=== PATIENT | male | born 1975 | race African-American/Black ===

== ENCOUNTER 2018-03-19 14:35 | Inpatient (IN) | payer OTHER, MEDICARE ==
[2018-03-19] MEDS: MORPHINE 4 MG/ML 1ML VIAL/SYRINGE (J2270) IV ×2 (15:17→17:00)
[2018-03-19] MEDS: NS 1,000 ML IV ×4 (15:18→21:39)
[2018-03-19 15:20] LABS: HEMATOCRIT 18.3 % (42.0-52.0); MEAN CORPUSCULAR HEMOGLOBIN 32.3 pg (27.0-33.0); MEAN CORPUSCULAR HGB CONC 35.5 g/dl (32.0-36.5); PLATELET COUNT, AUTOMATED 167 10^3/uL (150-450); RED BLOOD COUNT 2.01 10^6/uL (4.30-6.10); RED CELL DISTRIBUTION WIDTH 23.5 % (11.5-14.5)
[2018-03-19 15:22] LABS: WHITE BLOOD COUNT 19.3 10^3/uL (4.0-10.0)
[2018-03-19 15:23] LABS: ADD MANUAL DIFFER YES; DIFF SLIDE NUMBER 153; POS COUNT POS FLAG; POSITIVE DIFF POS FLAG; POSITIVE MORPH POS FLAG; RETIC SCAT POS FLAG
[2018-03-19 15:24] LABS: HEMOGLOBIN 6.5 g/dl (13.5-17.5)
[2018-03-19 15:37] LABS: RETIC HEMOGLOBIN EQUIVALENT 31.2 pg (24-36); RETICULOCYTE # 542.6 10^9/L (17-77); RETICULOCYTE % 24.4 % (0.5-1.5)
[2018-03-19 15:46] LABS: ANION GAP 8 MEQ/L (8-16); BLOOD UREA NITROGEN 13 MG/DL (7-18); CALCIUM LEVEL 8.8 MG/DL (8.5-10.1); CARBON DIOXIDE LEVEL 24 MEQ/L (21-32); CHLORIDE LEVEL 110 MEQ/L (98-107); CPK CREATINE PHOSPHOKINASE 53 U/L (39-308); CREATININE FOR GFR 1.05 MG/DL (0.70-1.30); GLOMERULAR FILTRATION RATE > 60.0 (>60); GLUCOSE, FASTING 104 MG/DL (70-100); POTASSIUM SERUM 4.7 MEQ/L (3.5-5.1); SODIUM LEVEL 142 MEQ/L (136-145); TROPONIN I < 0.02 NG/ML (< 0.10)
[2018-03-19 15:47] LABS: ATYPICAL LYMPH 4 % (0-5); BASOPHILS 2 % (0-4); CK-MB VALUE MASS < 1.0 NG/ML (<3.6); EOSINOPHILS 5 % (0-5); LYMPHOCYTES 27 % (16-52); MB/CK RELATIVE INDEX 1.88 (< OR =4); MONOCYTES 5 % (0-8); NEUTROPHILS 57 % (35-75); PLATELET ESTIMATE NORMAL (NORMAL)
[2018-03-19 15:48] LABS: ANISOCYTOSIS 3+
[2018-03-19 15:49] LABS: POLYCHROMASIA 1+; SICKLE CELLS 2+
[2018-03-19 15:54] LABS: TEAR DROP CELLS 1+
[2018-03-19 16:39] LABS: KETONE, URINE AUTO RFX NEGATIVE (NEGATIVE); LEUKOCYTE ESTERASE UR AUTO RFX NEGATIVE (NEGATIVE); NITRITE, URINE AUTO RFX NEGATIVE (NEGATIVE); RBC, URINE AUTO RFX 1 /HPF (0-3); SPECIFIC GRAVITY UR AUTO RFX 1.009 (1.002-1.035); SQUAM EPITHELIAL CELL UR AURFX 0 /HPF (0-6); WBC, URINE AUTO RFX 0 /HPF (0-3)
[2018-03-19] MEDS ORDERED: MORPHINE 4 MG/ML 1ML VIAL/SYRINGE (J2270) IV (17:45)
[2018-03-19] MEDS ORDERED: ONDANSETRON 4MG/2ML VIAL (J2405) IV (17:45)
[2018-03-19] MEDS: PANTOPRAZOLE 40MG TAB (PROTONIX) PO (18:51)
[2018-03-19] MEDS: NORCO, ANEXSIA 5/325MG TABLET (HYDROcodone/ACETAMINOPHEN) PO ×2 (19:44→23:48)
[2018-03-19] MEDS ORDERED: ANEXSIA, NORCO 7.5MG/325MG TABLET(HYDROCODONE/APAP) As Ordered (19:46)
[2018-03-19] MEDS: HEPARIN SOD (PORCINE) 5000 UNITS/ML VIAL SQ (21:39)
[2018-03-19] MEDS: SENOKOT S TAB PO (21:40)
[2018-03-19] MEDS: DOCUSATE SODIUM 100 MG CAP PO (21:40)
[2018-03-19] MEDS: FOLIC ACID 1 MG in NS 50 ML IV (21:58)
[2018-03-19 23:13] LABS: IMMEDIATE SPIN CROSSMATCH 1 2
[2018-03-20] MEDS: HEPARIN SOD (PORCINE) 5000 UNITS/ML VIAL SQ ×3 (05:24→21:30)
[2018-03-20] MEDS: NORCO, ANEXSIA 5/325MG TABLET (HYDROcodone/ACETAMINOPHEN) PO (05:27)
[2018-03-20 05:36] LABS: HEMATOCRIT 21.1 % (42.0-52.0); HEMOGLOBIN 7.6 g/dl (13.5-17.5); MEAN CORPUSCULAR HEMOGLOBIN 31.7 pg (27.0-33.0); MEAN CORPUSCULAR VOLUME 87.9 fl (80.0-96.0); PLATELET COUNT, AUTOMATED 162 10^3/uL (150-450)
[2018-03-20 06:04] LABS: POS COUNT POS FLAG; POSITIVE DIFF POS FLAG; RETIC SCAT POS FLAG; RETICULOCYTE % 21.7 % (0.5-1.5); WHITE BLOOD COUNT 14.7 10^3/uL (4.0-10.0)
[2018-03-20 06:05] LABS: RETIC HEMOGLOBIN EQUIVALENT 29.1 pg (24-36); RETICULOCYTE # 309.6 10^9/L (17-77)
[2018-03-20 06:06] LABS: ADD MANUAL DIFFER YES; DIFF SLIDE NUMBER 68
[2018-03-20] MEDS: NS 1,000 ML IV ×5 (06:40→22:32)
[2018-03-20 06:45] LABS: EOSINOPHILS 7 % (0-5); LYMPHOCYTES 48 % (16-52); MONOCYTES 9 % (0-8); NEUTROPHILS 36 % (35-75)
[2018-03-20 06:47] LABS: GIANT PLATELETS 1+; PLATELET ESTIMATE NORMAL (NORMAL)
[2018-03-20 06:49] LABS: ANISOCYTOSIS 2+; POIKILOCYTOSIS 1+; SICKLE CELLS 3+
[2018-03-20] MEDS: DOCUSATE SODIUM 100 MG CAP PO ×2 (08:50→21:30)
[2018-03-20] MEDS: SENOKOT S TAB PO ×2 (08:51→21:31)
[2018-03-20] MEDS: PANTOPRAZOLE 40MG TAB (PROTONIX) PO (09:25)
[2018-03-20] MEDS ORDERED: NS 1,000 ML IV (11:19)
[2018-03-20] MEDS ORDERED: diphenhydrAMINE INJ 50MG/ML VIAL (J1200) IV (11:30)
[2018-03-20] MEDS ORDERED: NALOXONE INJ 0.4 MG/1 ML VIAL (J2310) IV (11:30)
[2018-03-20] MEDS ORDERED: EPIDURAL/PCA KEYS XX (11:30)
[2018-03-20] MEDS: HYDROXYUREA 500 MG CAP PO (11:41)
[2018-03-20] MEDS: MORPHINE 4 MG/ML 1ML VIAL/SYRINGE (J2270) IV (11:41)
[2018-03-20] MEDS: MORPHINE 1MG/ML IN 0.9% NACL 100ML IV BAG IV (12:20)
[2018-03-20 15:06] LABS: IMMEDIATE SPIN CROSSMATCH 1 2
[2018-03-20] MEDS: FOLIC ACID 1 MG TAB PO (16:42)
[2018-03-21] MEDS: NS 1,000 ML IV ×3 (03:37→13:45)
[2018-03-21] MEDS: HEPARIN SOD (PORCINE) 5000 UNITS/ML VIAL SQ ×3 (05:49→21:20)
[2018-03-21 07:13] LABS: BASO # 0.1 10^3/uL (0.0-0.2); BASO % 0.8 % (0.0-1.0); EOS # 0.8 10^3/uL (0.0-0.50); EOS % 5.6 % (0.0-3.0); HEMATOCRIT 24.7 % (42.0-52.0); HEMOGLOBIN 8.9 g/dl (13.5-17.5); IMMATURE GRANULOCYTE % 0.7 % (0-3.0); LYMPH # 3.7 10^3/uL (1.5-4.5); LYMPH % 25.6 % (24.0-44.0); MEAN CORPUSCULAR HEMOGLOBIN 30.9 pg (27.0-33.0); MEAN CORPUSCULAR VOLUME 85.8 fl (80.0-96.0); MONO # 1.8 10^3/uL (0.0-0.8); MONO % 12.5 % (0.0-5.0); NEUTROPHILS # 7.9 10^3/uL (1.8-7.7); NEUTROPHILS % 54.8 % (36.0-66.0); PLATELET COUNT, AUTOMATED 162 10^3/uL (150-450); RED BLOOD COUNT 2.88 10^6/uL (4.30-6.10); RED CELL DISTRIBUTION WIDTH 19.4 % (11.5-14.5); WHITE BLOOD COUNT 14.4 10^3/uL (4.0-10.0)
[2018-03-21] MEDS: PANTOPRAZOLE 40MG TAB (PROTONIX) PO (08:10)
[2018-03-21] MEDS: FOLIC ACID 1 MG TAB PO (08:11)
[2018-03-21] MEDS: SENOKOT S TAB PO ×2 (08:11→21:20)
[2018-03-21] MEDS: HYDROXYUREA 500 MG CAP PO (08:11)
[2018-03-21] MEDS: DOCUSATE SODIUM 100 MG CAP PO ×2 (08:11→21:20)
[2018-03-21] MEDS ORDERED: NS 500 ML IV (17:00)
[2018-03-21] MEDS: FUROSEMIDE 40 MG/4 ML VIAL (J1940) IV (18:09)
[2018-03-21] MEDS ORDERED: ISOVUE-370 76% 100ML VIAL (Q9967) As Ordered (18:40)
[2018-03-21 18:56] LABS: BASO # 0.1 10^3/uL (0.0-0.2); BASO % 0.5 % (0.0-1.0); EOS # 0.6 10^3/uL (0.0-0.50); EOS % 3.4 % (0.0-3.0); HEMATOCRIT 24.7 % (42.0-52.0); IMMATURE GRANULOCYTE % 0.7 % (0-3.0); LYMPH # 2.7 10^3/uL (1.5-4.5); LYMPH % 16.4 % (24.0-44.0); MEAN CORPUSCULAR HEMOGLOBIN 30.8 pg (27.0-33.0); MEAN CORPUSCULAR HGB CONC 36.4 g/dl (32.0-36.5); MEAN CORPUSCULAR VOLUME 84.6 fl (80.0-96.0); MONO # 1.8 10^3/uL (0.0-0.8); NEUTROPHILS # 11.3 10^3/uL (1.8-7.7); PLATELET COUNT, AUTOMATED 141 10^3/uL (150-450); RED BLOOD COUNT 2.92 10^6/uL (4.30-6.10); RED CELL DISTRIBUTION WIDTH 19.5 % (11.5-14.5); WHITE BLOOD COUNT 16.6 10^3/uL (4.0-10.0)
[2018-03-21 19:23] LABS: ERYTHROCYTE SEDIMENTATION RATE 42 mm/hr (0-15)
[2018-03-21 19:24] LABS: C REACTIVE PROTEIN QUANTITATIV 7.12 MG/DL (0.00-0.30)
[2018-03-21 20:14] LABS: KETONE, URINE AUTO RFX NEGATIVE (NEGATIVE); LEUKOCYTE ESTERASE UR AUTO RFX NEGATIVE (NEGATIVE); NITRITE, URINE AUTO RFX NEGATIVE (NEGATIVE); RBC, URINE AUTO RFX 1 /HPF (0-3); SPECIFIC GRAVITY UR AUTO RFX 1.006 (1.002-1.035); SQUAM EPITHELIAL CELL UR AURFX 0 /HPF (0-6); WBC, URINE AUTO RFX 0 /HPF (0-3)
[2018-03-21] MEDS: PIPERACILLIN/TAZOBACTAM SOD 3.375 GM in D5W MINI-BAG PLUS 50 ML IV (21:20)
[2018-03-21] MEDS: NALBUPHINE HCL 10 MG/ML AMP (J2300) IV (21:37)
[2018-03-21] MEDS: AZITHROMYCIN INJ 500 MG, VIAL MATE ADAPTER 1 EACH in D5W 250 ML IV (22:40)
[2018-03-22] MEDS: PIPERACILLIN/TAZOBACTAM SOD 3.375 GM in D5W MINI-BAG PLUS 50 ML IV ×4 (01:11→18:10)
[2018-03-22] MEDS: ONDANSETRON 4MG/2ML VIAL (J2405) IV (02:46)
[2018-03-22] MEDS: HEPARIN SOD (PORCINE) 5000 UNITS/ML VIAL SQ ×3 (06:18→21:52)
[2018-03-22 08:29] LABS: BASO # 0.1 10^3/uL (0.0-0.2); BASO % 0.4 % (0.0-1.0); EOS # 0.5 10^3/uL (0.0-0.50); EOS % 2.8 % (0.0-3.0); HEMATOCRIT 24.3 % (42.0-52.0); HEMOGLOBIN 8.8 g/dl (13.5-17.5); IMMATURE GRANULOCYTE % 0.7 % (0-3.0); LYMPH # 3.8 10^3/uL (1.5-4.5); LYMPH % 21.6 % (24.0-44.0); MEAN CORPUSCULAR HEMOGLOBIN 30.9 pg (27.0-33.0); MEAN CORPUSCULAR HGB CONC 36.2 g/dl (32.0-36.5); MEAN CORPUSCULAR VOLUME 85.3 fl (80.0-96.0); MONO # 2.2 10^3/uL (0.0-0.8); MONO % 12.5 % (0.0-5.0); NEUTROPHILS # 10.9 10^3/uL (1.8-7.7); POS COUNT POS FLAG; POSITIVE DIFF POS FLAG; RED BLOOD COUNT 2.85 10^6/uL (4.30-6.10); RED CELL DISTRIBUTION WIDTH 19.2 % (11.5-14.5); WHITE BLOOD COUNT 17.5 10^3/uL (4.0-10.0)
[2018-03-22 08:30] LABS: PLATELET COUNT, AUTOMATED 131 10^3/uL (150-450)
[2018-03-22] MEDS: HYDROXYUREA 500 MG CAP PO (08:41)
[2018-03-22] MEDS: SENOKOT S TAB PO ×2 (08:41→21:50)
[2018-03-22] MEDS: NALBUPHINE HCL 10 MG/ML AMP (J2300) IV (08:41)
[2018-03-22] MEDS: DOCUSATE SODIUM 100 MG CAP PO ×2 (08:41→21:50)
[2018-03-22] MEDS: PANTOPRAZOLE 40MG TAB (PROTONIX) PO (08:41)
[2018-03-22] MEDS: FOLIC ACID 1 MG TAB PO (08:41)
[2018-03-22 08:48] LABS: ANION GAP 11 MEQ/L (8-16); BLOOD UREA NITROGEN 17 MG/DL (7-18); CALCIUM LEVEL 8.9 MG/DL (8.5-10.1); CARBON DIOXIDE LEVEL 26 MEQ/L (21-32); CHLORIDE LEVEL 105 MEQ/L (98-107); GLOMERULAR FILTRATION RATE > 60.0 (>60); GLUCOSE, FASTING 73 MG/DL (70-100); MAGNESIUM LEVEL 1.7 MG/DL (1.8-2.4); POTASSIUM SERUM 4.2 MEQ/L (3.5-5.1); SODIUM LEVEL 142 MEQ/L (136-145)
[2018-03-22] MEDS ORDERED: PERCOCET 5MG/325MG TAB PO (13:00)
[2018-03-22] MEDS: ACETAMINOPHEN 325 MG TAB PO (18:11)
[2018-03-22] MEDS: oxyCODONE 5MG TAB PO (18:12)
[2018-03-22] MEDS: AZITHROMYCIN INJ 500 MG, VIAL MATE ADAPTER 1 EACH in D5W 250 ML IV (21:52)
[2018-03-23] MEDS: PIPERACILLIN/TAZOBACTAM SOD 3.375 GM in D5W MINI-BAG PLUS 50 ML IV ×4 (00:50→18:01)
[2018-03-23] MEDS: HEPARIN SOD (PORCINE) 5000 UNITS/ML VIAL SQ ×3 (06:18→21:13)
[2018-03-23 06:38] LABS: BASO # 0.1 10^3/uL (0.0-0.2); BASO % 0.5 % (0.0-1.0); EOS # 0.7 10^3/uL (0.0-0.50); EOS % 4.6 % (0.0-3.0); HEMATOCRIT 21.3 % (42.0-52.0); HEMOGLOBIN 7.8 g/dl (13.5-17.5); IMMATURE GRANULOCYTE % 1.3 % (0-3.0); LYMPH # 3.4 10^3/uL (1.5-4.5); LYMPH % 23.7 % (24.0-44.0); MEAN CORPUSCULAR HEMOGLOBIN 30.5 pg (27.0-33.0); MEAN CORPUSCULAR VOLUME 83.2 fl (80.0-96.0); MONO # 1.8 10^3/uL (0.0-0.8); MONO % 12.6 % (0.0-5.0); NEUTROPHILS # 8.1 10^3/uL (1.8-7.7); NEUTROPHILS % 57.3 % (36.0-66.0); PLATELET COUNT, AUTOMATED 132 10^3/uL (150-450); RED BLOOD COUNT 2.56 10^6/uL (4.30-6.10); WHITE BLOOD COUNT 14.2 10^3/uL (4.0-10.0)
[2018-03-23 06:43] LABS: MEAN CORPUSCULAR HGB CONC 36.2 g/dl (32.0-36.5)
[2018-03-23 06:54] LABS: ANION GAP 7 MEQ/L (8-16); BLOOD UREA NITROGEN 18 MG/DL (7-18); CALCIUM LEVEL 9.1 MG/DL (8.5-10.1); CARBON DIOXIDE LEVEL 27 MEQ/L (21-32); CHLORIDE LEVEL 108 MEQ/L (98-107); GLOMERULAR FILTRATION RATE > 60.0 (>60); GLUCOSE, FASTING 85 MG/DL (70-100); MAGNESIUM LEVEL 1.6 MG/DL (1.8-2.4); SODIUM LEVEL 142 MEQ/L (136-145)
[2018-03-23] MEDS: SENOKOT S TAB PO ×2 (08:37→21:12)
[2018-03-23] MEDS: HYDROXYUREA 500 MG CAP PO (08:37)
[2018-03-23] MEDS: PANTOPRAZOLE 40MG TAB (PROTONIX) PO (08:37)
[2018-03-23] MEDS: FOLIC ACID 1 MG TAB PO (08:37)
[2018-03-23] MEDS: DOCUSATE SODIUM 100 MG CAP PO ×2 (08:37→21:00)
[2018-03-23] MEDS: ACETAMINOPHEN 325 MG TAB PO ×2 (11:01→18:04)
[2018-03-23] MEDS: MAGNESIUM OXIDE 400 MG TAB (MAG-OX) PO ×3 (11:01→21:13)
[2018-03-23] MEDS: oxyCODONE 5MG TAB PO ×2 (11:01→18:04)
[2018-03-23 11:49] LABS: IMMEDIATE SPIN CROSSMATCH 1 2
[2018-03-23] MEDS: AZITHROMYCIN INJ 500 MG, VIAL MATE ADAPTER 1 EACH in D5W 250 ML IV (21:12)
[2018-03-24] MEDS: oxyCODONE 5MG TAB PO
[2018-03-24] MEDS: ACETAMINOPHEN 325 MG TAB PO (00:01)
[2018-03-24] MEDS ORDERED: MOXIFLOXACIN 400 MG TAB PO ×2 (06:00)
== END 2018-03-24 00:08 | disposition home or self-care (01) | DRG 662 ==
LOC: M MSPAV 03-22 09:39 → M ED 14:35 → M ED INP 17:36 → M MSPAV 18:45
PROC: 30233N1 Transfusion of Nonautologous Red Blood Cells into Peripheral Vein, Percutaneous Approach (ICD-10-PCS; principal; 2018-03-19)
DX: D57.00 Hb-SS disease with crisis, unspecified (principal); J18.9 Pneumonia, unspecified organism; Z79.891 Long term (current) use of opiate analgesic; Z79.899 Other long term (current) drug therapy

== ENCOUNTER 2021-01-31 16:42 | Inpatient (IN) | payer MEDICARE, OTHER ==
[~2021-01-31] VITALS: Ht 177.8 cm; Wt 61.0 kg
[~2021-01-31 16:42] MED LIST: ACET1TAB55 PO; AMOX500T PO; FOLI1TAB11 PO; MAGN400T35 PO; MOXI1TAB PO; PANT40TA29 PO; PERC10TA26 PO
[2021-01-31] MEDS ORDERED: HYDR500C3 PO (16:50)
[2021-01-31] MEDS ORDERED: NS 1,000 ML IV ONE (17:25)
[2021-01-31] MEDS ORDERED: MORPHINE 4 MG/ML 1ML VIAL/SYRINGE (J2270) IV PRN (17:25)
[2021-01-31 17:53] LABS: BASO # 0.1 10^3/uL (0.0-0.2); BASO % 1.2 % (0.0-1.0); EOS # 0.5 10^3/uL (0.0-0.5); EOS % 5.1 % (0.0-3.0); LYMPH # 4.9 10^3/uL (1.5-5.0); LYMPH % 49.4 % (24.0-44.0); MEAN CORPUSCULAR HEMOGLOBIN 36.7 pg (27.0-33.0); MEAN CORPUSCULAR HGB CONC 35.2 g/dl (32.0-36.5); MEAN CORPUSCULAR VOLUME 104.1 fl (80.0-96.0); MONO # 1.4 10^3/uL (0.0-0.8); MONO % 14.6 % (2.0-8.0); NEUTROPHILS # 2.9 10^3/uL (1.5-8.5); NEUTROPHILS % 29.1 % (36.0-66.0); PLATELET COUNT, AUTOMATED 133 10^3/uL (150-450); RED BLOOD COUNT 1.69 10^6/uL (4.30-6.10); WHITE BLOOD COUNT 9.8 10^3/uL (4.0-10.0)
[2021-01-31 17:55] LABS: HEMATOCRIT 17.6 % (42.0-52.0); HEMOGLOBIN 6.2 g/dl (13.5-17.5)
--- NOTE | 2021-01-31 18:11 | REP ---
INDICATION: CHEST PAIN COMPARISON: 03/19/2018 TECHNIQUE: Portable AP view of the chest FINDINGS: The mediastinum and cardiac silhouette are stable and within normal limits for portable technique. The lung diego are clear without acute consolidation, effusion, or pneumothorax. Skeletal structures are intact. IMPRESSION: No acute cardiopulmonary process appreciated. <Electronically signed by Jatin Jimenez > 01/31/21 [id number]
[2021-01-31 18:29] LABS: ALBUMIN 3.6 GM/DL (3.2-5.2); ALT/SGPT 90 U/L (12-78); BILIRUBIN,DIRECT 1.6 MG/DL (0.0-0.2); BILIRUBIN,TOTAL 6.8 MG/DL (0.2-1.0); BLOOD UREA NITROGEN 16 MG/DL (7-18); CALCIUM LEVEL 9.5 MG/DL (8.5-10.1); CARBON DIOXIDE LEVEL 25 MEQ/L (21-32); CHLORIDE LEVEL 111 MEQ/L (98-107); CK-MB VALUE MASS < 1.0 NG/ML (<3.6); CPK CREATINE PHOSPHOKINASE 45 U/L (39-308); CREATININE FOR GFR 0.91 MG/DL (0.70-1.30); GLOMERULAR FILTRATION RATE > 60.0 (>60); GLUCOSE, FASTING 112 MG/DL (70-100); LIPASE 148 U/L (73-393); MB/CK RELATIVE INDEX 2.22 (< OR =4); NT-PRO BNP 131 PG/ML (<125); POTASSIUM SERUM 5.1 MEQ/L (3.5-5.1); SODIUM LEVEL 141 MEQ/L (136-145); TOTAL PROTEIN 7.4 GM/DL (6.4-8.2); TROPONIN I < 0.02 NG/ML (< 0.10)
[2021-01-31 19:51] LABS: INR 1.26; PROTHROMBIN TIME 16.1 SECONDS (12.5-14.3)
[2021-01-31 19:53] LABS: PARTIAL THROMBOPLASTIN TIME 37.1 SECONDS (24.2-38.5)
[2021-01-31 19:55] LABS: D-DIMER QUANT 559.74 ng/ml (<500)
[2021-01-31] MEDS ORDERED: ISOVUE-370 76% 100ML VIAL As Ordered ONE (20:02)
[2021-01-31 20:07] LABS: RSV AMPLIFICATION NEGATIVE (NEGATIVE)
[2021-01-31] MEDS ORDERED: MORPHINE 4 MG/ML 1ML VIAL/SYRINGE (J2270) IV ONE (20:20)
--- NOTE | 2021-01-31 20:50 | REPVR ---
PROCEDURE INFORMATION: Exam: CTA Chest With Contrast Exam date and time: 01/31/2021 8:26 PM Age: 45 years old Clinical indication: Shortness of breath and other: Sickle crisis; Additional info: SOB; Sickle crisis; R/O pe TECHNIQUE: Imaging protocol: Computed tomographic angiography of the chest with contrast. 3D rendering (Not supervised by radiologist): MIP and/or 3D reconstructed images were created by the technologist. Radiation optimization: All CT scans at this facility use at least one of these dose optimization techniques: automated exposure control; mA and/or kV adjustment per patient size (includes targeted exams where dose is matched to clinical indication); or iterative reconstruction. Contrast material: ISOVUE 370; Contrast volume: 75 ml; Contrast route: INTRAVENOUS (IV); COMPARISON: CT ANGIO CHEST 03/21/2018 6:51 PM FINDINGS: Pulmonary arteries: There are no pulmonary emboli. Aorta: There is fusiform dilatation of the ascending thoracic aorta which measures 3.7 cm. maximally. There is no dissection or saccular component. Lungs: Unremarkable. No consolidation. No masses. Pleural spaces: Unremarkable. No pneumothorax. No pleural effusion. Heart: Unremarkable. No cardiomegaly. No pericardial effusion. Lymph nodes: Unremarkable. No enlarged lymph nodes. Bones/joints: Dextroscoliosis. Soft tissues: Unremarkable. IMPRESSION: 1. There is fusiform dilatation of the ascending thoracic aorta which measures 3.7 cm. maximally. There is no dissection or saccular component. 2. There are no pulmonary emboli. 3. No acute pulmonary parenchymal abnormalities. Electronically signed by: Marek Mckeon On 01/31/2021 20:49:48 PM
[2021-01-31] MEDS ORDERED: MAALOX 30 ML SUSP *UDC PO PRN (20:55)
[2021-01-31] MEDS ORDERED: ACETAMINOPHEN TAB 650MG DOSE (2X325MG) PO PRN (20:55)
[2021-01-31] MEDS ORDERED: MOM 30ML SUSPENSION UDC PO PRN (20:55)
--- NOTE | 2021-01-31 20:56 | HPEPDOC ---
[facility] Medical History & Physical Date of Admission Jan 31, 2021 Date of Service: Jan 31, 2021 History and Physical CHIEF COMPLAINT: bilateral lower extremity pain HISTORY OF PRESENT ILLNESS: 45-year-old male with a history of sickle cell anemia, rectal [place] to visit his son in [place] presented to the ER with 24-hour history of severe lower extremity pain as well as shortness of breath. He experiences sickle cell crisis approximately every 6 months. Particularly in cold climates. Patient denies any chest pain, palpitations, nausea, vomiting, diarrhea or headache. He states his pain in the legs improved after morphine administration. He follows with a silk trimmer and [facility] and takes hydroxyurea regularly. He ran out of his medication, but received the last dose yesterday and . She currently does not have any fever, any dysuria, cough, or subjective chills. Of note, patient also endorsing lower GI bleeding describing brown stool mixed with bright red blood. This is been occurring inte rmittently every few months, most recently yesterday morning. PAST MEDICAL HISTORY: sick cell anemia PAST SURGICAL HISTORY: cholecystectomy splenectomy SOCIAL HISTORY: Patient denies smoking Patient denies etoh use Patient denies illicit drug use FAMILY HISTORY: review with patient, non contributory ALLERGIES: Please see below. REVIEW OF SYSTEMS: 10 point ROS completed, relevant findings are noted in the HPI HOME MEDICATIONS: Please see below. PHYSICAL EXAMINATION: VITAL SIGNS: please see below General: NAD, comfortable HEENT: PERRLA, EOMI, sclerae clear Neck: supple, normal ROM, no JVD Respiratory: lungs CTAB, no wheeze, no rales, no crackles CVS: RRR, normal S1, S2, no murmurs Abdo: soft, no masses, no hepatosplenomegaly, BS+, no rebound tenderness Extremities: no edema, pulses 2+ MSK: no joint deformities, normal ROM Neuro: no focal neuro deficits, moving all 4 extremities, CN2-12 intact. Strength 5/5 in all 4 extremities. No nystagmus. Psych: calm, cooperative, AAO x 3 LABORATORY DATA: See below. IMAGING: CTA chest (01/31/21); 1. There is fusiform dilatation of the ascending thoracic aorta which measures 3.7 cm. maximally. There is no dissection or saccular component. 2. There are no pulmonary emboli. 3. No acute pulmonary parenchymal abnormalities. MICROBIOLOGY: Please see below. ASSESSMENT: 45-year-old male with a history of sickle cell anemia, rectal [place] to visit his son in [place] presented to the ER with 24-hour history of severe lower extremity pain as well as shortness of breath with an episode of hematochezia on 01/30/21. . PLAN: Sickle cell crisis: - patient is afebrile without leukocytosis, infectious etiology unlikely - Hgb 6.8. elevated retic count 456. ferritin 6400. T bili 6.8. D bili 1.6 consistent with hemolysis. 2 units prbc ordered - pain control with morphine 2 mg q2h prn for breakthrough with percocet q4h prn - start folic acid - start IVF - c/w hydroxyurea - will give lovenox 40 mg qc due to hypercoagulable state - I placed a hematology consult and discussed with Dr. Concepcion who agrees with above plan and recommends given ppx lovenox dosing. Hematochezia - patient reports bright red blood per rectum with brown stool every few months, most recently yesterday morning - transfuse for Hgb < 8 - will likely require colonoscopy, acuity depending on hemoglobin stability and recurrence of bleeding Elevated D dimer - CTA chest showing no PE - c/w lovenox 40 mg sc daily Fusiform dilatation of the ascending thoracic aorta - monitor OP Dispo: pending clinical improvement. Vital Signs Vital Signs Date Time Temp Pulse Resp B/P (MAP) Pulse Ox O2 Delivery O2 Flow Rate FiO2 01/31/21 20:37 01/31/21 20:37 73 16 94 Room Air 01/31/21 16:42 97.4 Laboratory Data Labs 24H Laboratory Tests 2 01/31/21 17:22: Immature Granulocyte % (Auto) 0.6, Neutrophils (%) (Auto) 29.1L, Lymphocytes (%) (Auto) 49.4H, Monocytes (%) (Auto) 14.6H, Eosinophils (%) (Auto) 5.1H, Basophils (%) (Auto) 1.2H, Neutrophils # (Auto) 2.9, Lymphocytes # (Auto) 4.9, Monocytes # (Auto) 1.4H, Eosinophils # (Auto) 0.5, Basophils # (Auto) 0.1, Nucleated Red Blood Cells % (auto) 3.7H, Prothrombin Time 16.1H, Prothromb Time International Ratio 1.26, Activated Partial Thromboplast Time 37.1, D-Dimer, Quantitative 559.74H, Anion Gap 5L, Glomerular Filtration Rate > 60.0, Calcium Level 9.5, Total Bilirubin 6.8H, Direct Bilirubin 1.6H, Aspartate Amino Transf (AST/SGOT) 114H, Alanine Aminotransferase (ALT/SGPT) 90H, Alkaline Phosphatase 167H, Total Creatine Kinase 45, Creatine Kinase MB < 1.0, Creatine Kinase MB Relative Index 2.22, Troponin I < 0.02, YC-Ryi-P-Type Natriuretic Peptide 131H, Total Protein 7.4, Albumin 3.6, Albumin/Globulin Ratio 0.9, Lipase 148, Thyroid Stimulating Hormone (TSH) 1.210 01/31/21 18:56: Reticulocyte # (auto) 456.7H, Percent Reticulocyte Count 28.2H, Reticulocyte Hemoglobin Equivalent 34.6, Ferritin 6396H, Coronavirus (COVID-19)(PCR) NEGATI VE, Influenza Type A (RT-PCR) NEGATIVE, Influenza Type B (RT-PCR) NEGATIVE, Respiratory Syncytial Virus (PCR) NEGATIVE CBC/BMP Laboratory Tests 01/31/21 17:22 Microbiology Microbiology 01/31/21 Blood Culture, Received Pending 01/31/21 Blood Culture, Received Pending Home Medications Scheduled Hydroxyurea (Hydroxyurea) 500 Mg Capsule, 500 MG PO DAILY Allergies Coded Allergies: No Known Allergies (Unverified , 01/31/21) A-FIB/CHADSVASC A-FIB History Current/History of A-Fib/PAF?: No Current PO Anticoag Therapy: No CELESTINA PIMENTEL MD Jan 31, 2021 20:56
[2021-01-31] MEDS ORDERED: FOLIC ACID 1 MG TAB PO ONE (21:50)
[2021-01-31 22:00] VITALS: BP 129/72
[2021-01-31 22:02] VITALS: BP 123/79
[2021-01-31 22:23] VITALS: BP 135/84
[2021-01-31 22:53] VITALS: BP_SYST 129; BP_DIAS 129; BP_DIAS 86
[2021-01-31 23:05] VITALS: BP 129/72
[2021-01-31] MEDS: NS 1,000 ML IV SCH (23:33)
[2021-01-31] MEDS: DOCUSATE SODIUM 100MG CAPSULE PO SCH (23:33)
[2021-02-01] VITALS (18 sets, daily range): BP systolic 120–131; BP diastolic 70–81
[2021-02-01] MEDS: PERCOCET 5MG/325MG TAB PO PRN ×4 (00:02→18:27)
[2021-02-01] MEDS: MORPHINE 2 MG/ML 1ML VIAL (J2270) IV PRN ×3 (03:43→21:23)
[2021-02-01] MEDS: NS 1,000 ML IV SCH ×3 (05:46→18:27)
--- NOTE | 2021-02-01 06:22 | ECGEPIP ---
[facility] - ED Test Date: 2021-01-31 Pat Name: ANISA PAL Department: Room: - Gender: Male Size Worker: TIFF : 1975 Requested By: SUZE PEDROZA Order Number: [id number] Reading MD: Rosa Figueredo Measurements Intervals [place] Rate: 70 P: 17 CA: 182 QRS: 18 QRSD: 90 T: 33 QT: 402 QTc: 434 Interpretive Statements Normal sinus rhythm subtle increase diffuse ST elevation - to consider pericarditis, ischemia, early r repolarization 03/19/[address] elevation perhaps a little more pronounced Electronically Signed on 02-01-2021 6:22:30 EDT by Rosa Figueredo
[2021-02-01] MEDS ORDERED: HYDROXYUREA 500 MG CAP PO SCH (09:00)
[2021-02-01 09:19] LABS: HEMATOCRIT 28.9 % (42.0-52.0); MEAN CORPUSCULAR HEMOGLOBIN 31.8 pg (27.0-33.0); MEAN CORPUSCULAR HGB CONC 33.9 g/dl (32.0-36.5); MEAN CORPUSCULAR VOLUME 93.8 fl (80.0-96.0); PLATELET COUNT, AUTOMATED 115 10^3/uL (150-450); RED BLOOD COUNT 3.08 10^6/uL (4.30-6.10)
[2021-02-01 09:23] LABS: HEMOGLOBIN 9.8 g/dl (13.5-17.5); WHITE BLOOD COUNT 10.6 10^3/uL (4.0-10.0)
[2021-02-01 09:42] LABS: ALBUMIN 3.4 GM/DL (3.2-5.2); ALT/SGPT 74 U/L (12-78); BILIRUBIN,TOTAL 5.5 MG/DL (0.2-1.0); BLOOD UREA NITROGEN 11 MG/DL (7-18); CALCIUM LEVEL 9.5 MG/DL (8.5-10.1); CARBON DIOXIDE LEVEL 25 MEQ/L (21-32); CHLORIDE LEVEL 112 MEQ/L (98-107); CREATININE FOR GFR 0.78 MG/DL (0.70-1.30); GLOMERULAR FILTRATION RATE > 60.0 (>60); GLUCOSE, FASTING 91 MG/DL (70-100); MAGNESIUM LEVEL 1.6 MG/DL (1.8-2.4); POTASSIUM SERUM 5.1 MEQ/L (3.5-5.1); SODIUM LEVEL 143 MEQ/L (136-145); TOTAL PROTEIN 6.7 GM/DL (6.4-8.2)
[2021-02-01 09:54] LABS: BASOPHILS 2 % (0-1); EOSINOPHILS 5 % (0-3); LYMPHOCYTES 60 % (16-44); MONOCYTES 11 % (0-5); NEUTROPHILS 22 % (28-66)
[2021-02-01 09:55] LABS: ANISOCYTOSIS 1+; POIKILOCYTOSIS 2+; POLYCHROMASIA 1+
[2021-02-01 09:56] LABS: SICKLE CELLS 2+
[2021-02-01 09:58] LABS: PLATELET ESTIMATE DECREASED (NORMAL)
[2021-02-01] MEDS: ENOXAPARIN 40MG/0.4ML SYRINGE (J1650 PER 10MG) SC SCH (10:11)
[2021-02-01] MEDS: DOCUSATE SODIUM 100MG CAPSULE PO SCH ×2 (10:11→20:30)
--- NOTE | 2021-02-01 10:34 | ECGEPIP ---
[facility] Test Date: 2021-02-01 Pat Name: ANISA PAL Department: Room: [place] [address] Gender: Male Supervisor Frame Sample And Pattern: RADHA : 1975 Requested By: ABHIJEET OLMOS Order Number: [id number] Reading MD: Lolita Schmid Measurements Intervals [place] Rate: 50 P: -27 [place]: 202 QRS: 3 QRSD: 94 T: 24 QT: 440 QTc: 401 Interpretive Statements Sinus bradycardia LEFT AXIS DEVIATION NEW SUBTLE EARLY REPOLAR CHANGES WHICH WERE MORE OBVIOUS 01/31/21 Electronically Signed on 02-01-2021 10:34:30 EDT by Lolita Schmid
--- NOTE | 2021-02-01 12:47 | CR.PDOC ---
General Date of Consultation: February 01, 2021 Referring Provider: CELESTINA PIMENTEL MD Attending Physician: HAMILTON ANDINO MD Consultation REASON FOR CONSULTATION/CHIEF COMPLAINT: [Sickle cell anemia with painful crisis]. HISTORY OF PRESENT ILLNESS: [I had the pleasure of seeing Mr. Michael Singh in consultation for sickle cell painful crisis. As you know Mr. 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 He has been having sickle cell crisis since his younger age and has been hospitalized several times in the past. He has been started on hydroxyurea while in [place] about 2 months ago and he takes 2 tablets of hydroxyurea every day. For last 1 week he has been having pain in both legs which got very severe and he ended up in emergency room of [facility]. In ER she was found to have hemoglobin of 6.2 with reticulocyte count of 28.2%. He was transfused with 4 units of packed red cells and was started on IV hydration with normal saline. He has also been started on morphine and folic acid. Currently he is feeling better and pain is under good control. Patient does not have pain anywhere else. He does not have the pain. Denies chest pain palpitations PND or orthopnea. He does not have headache dizziness or blackouts. He has no urinary symptoms. He called to him. He has hemorrhoids and has been bleeding off and on for last many years. Last time he had fresh blood per rectum about a week ago. He has never been treated for his hemorrhoids. Patient does not have any leg ulcers around the ankle. He is on disability and never worked. ALLERGIES: No known drug allergies HOME MEDICATIONS: Please see below. PAST MEDICAL HISTORY: 1. [Several episodes of painful crises of the legs. Never had acute chest crisis]. 2. 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 PAST SURGICAL HISTORY: 1. [Cholecystectomy] 2. [Splenectomy] FAMILY HISTORY: Patient has 5 siblings 3 sisters and 2 brothers. None of them have sickle cell disease. According to him his mom and dad both did not have any sickle cell disease. Likely they were carrier. Hereditary Diseases: [Sickle cell (SS) disease] Unexpected deaths due to medical reasons: SOCIAL HISTORY: Marital status and/or living arrangements: [ and lives with his .] Children: [He has 2 children one son and a daughter. These scans are not from current . Son, 17 years, has sickle cell trait 1 daughter, 12 years, has sickle cell disease] Employment: [On disability] Tobacco use:[Quit tobacco and smoking 3 years ago] ETOH: [Denies alcohol abuse] Illicit drug use: [None] IV drug use: [None] Other relevant social factors: [Patient is on disability] REVIEW OF SYSTEMS: CONSTITUTIONAL: [Currently stable and pain under good control]. HEENT: [No headache dizziness or blackouts]. CARDIOVASCULAR: [Denies chest pain palpitations PND or orthopnea]. RESPIRATORY: [No shortness of breath cough phlegm or wheezing]. GENITOURINARY: No blood in the urine]. MUSCULOSKELETAL: [Pain in both legs from trying to go]. GASTROINTESTINAL: [Patient has hemorrhoids and bleeds from that once in a while and last time bleeding was of your go]. SKIN: [No skin ulcers]. NEUROLOGICAL: [Denies seizures or headaches]. PSYCHIATRIC: [Mild compression]. ENDOCRINE: [Not a diabetic]. HEMATOLOGIC/LYMPHATIC: [Sickle cell disease with painful crisis]. ALLERGIC/IMMUNOLOGIC: [No known drug allergies]. PHYSICAL EXAMINATION: VITAL SIGNS: Please see below. GENERAL APPEARANCE: [Of present gentleman in no acute distress]. HEENT: [WNL U a milder cavity clear without mucositis or thrush]. RESPIRATORY: [Lungs clear to auscultation and percussion]. CARDIOVASCULAR: [RRR normal S2]. ABDOMEN: [Abdomen soft March on present, had splenectomy, liver not palpable]. EXTREMITIES: [No pedal edema or tenderness and no ulcers around the ankle]. NEUROLOGICAL: [No gross neurological deficit]. PSYCHIATRIC: . LABORATORY DATA: Please see below. 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 He has been transfused with 4 units of pac ked red cells. Sickle cell anemia is hypercoagulable state and currently he has been started on Lovenox 40 mg subcutaneous daily. Rectal bleeding is no longer there and it is from his hemorrhoids. Suggestions: Continue current therapy with IV hydration and continue morphine for pain control. He has been adequately transfused in hemoglobin has gone up to 9.8. He is more comfortable at this point. Continue folic acid and Lovenox for now. Do not start hydroxyurea until painful crises is over and then reintroduce hydroxyurea which can be done as outpatient. His hemorrhoids should be treated either with local hemorrhoidal ointment on a surgical appointment can be made for outpatient evaluation for his hemorrhoids. If patient develops hemorrhoidal bleeding while hospitalized Lovenox may be stopped and compression stocking should be put on. If patient is going to stay in [place] will follow him as outpatient once discharged. Patient was given ample time to auscultations which were answered to his satisfaction. Vital Signs/I&O Vital Signs Date Time Temp Pulse Resp B/P (MAP) Pulse Ox O2 Delivery O2 Flow Rate FiO2 02/01/21 11:00 16 Room Air 02/01/21 08:40 97.1 52 129/81 96 I&O- Last 24 Hours up to 6 AM 02/01/21 06:00 Intake Total 4728 ml Output Total 1225 ml Balance 3503 ml Laboratory Data Labs 24H Laboratory Tests 2 01/31/21 17:22: Immature Granulocyte % (Auto) 0.6, Neutrophils (%) (Auto) 29.1L, Lymphocytes (%) (Auto) 49.4H, Monocytes (%) (Auto) 14.6H, Eosinophils (%) (Auto) 5.1H, Basophils (%) (Auto) 1.2H, Neutrophils # (Auto) 2.9, Lymphocytes # (Auto) 4.9, Monocytes # (Auto) 1.4H, Eosinophils # (Auto) 0.5, Basophils # (Auto) 0.1, Nucleated Red Blood Cells % (auto) 3.7H, Prothrombin Time 16.1H, Prothromb Time International Ratio 1.26, Activated Partial Thromboplast Time 37.1, D-Dimer, Quantitative 559.74H, Anion Gap 5L, Glomerular Filtration Rate > 60.0, Calcium Level 9.5, Total Bilirubin 6.8H, Direct Bilirubin 1.6H, Aspartate Amino Transf (AST/SGOT) 114H, Alanine Aminotransferase (ALT/SGPT) 90H, Alkaline Phosphatase 167H, Total Creatine Kinase 45, Creatine Kinase MB < 1.0, Creatine Kinase MB Relative Index 2.22, Troponin I < 0.02, CB-Wuh-N-Type Natriuretic Peptide 131H, Total Protein 7.4, Albumin 3.6, Albumin/Globulin Ratio 0.9, Lipase 148, Thyroid Stimulating Hormone (TSH) 1.210 01/31/21 18:56: Reticulocyte # (auto) 456.7H, Percent Reticulocyte Count 28.2H, Reticulocyte Hemoglobin Equivalent 34.6, Ferritin 6396H, Coronavirus (COVID-19)(PCR) NEGATIVE, Influenza Type A (RT-PCR) NEGATIVE, Influenza Type B (RT-PCR) NEGATIVE, Respiratory Syncytial Virus (PCR) NEGATIVE 02/01/21 09:02: Neutrophils (%) (Auto) , Nucleated Red Blood Cells % (auto) 3.4H, Anion Gap 6L, Glomerular Filtration Rate > 60.0, Calcium Level 9.5, Total Bilirubin 5.5H, Aspartate Amino Transf (AST/SGOT) 89H, Alanine Aminotransferase (ALT/SGPT) 74, Alkaline Phosphatase 143H, Total Protein 6.7, Albumin 3.4, Albumin/Globulin Ratio 1.0, Neutrophils 22L, Lymphocytes (Manual) 60H, Monocytes (Manual) 11H, Eosinophils (Manual) 5H, Basophils (Manual) 2H, Polychromasia 1+, Poikilocytosis 2+, Anisocytosis 1+, Macrocytosis 1+, Sickle Cells 2+, Platelet Estimate DECREASED, Magnesium Level 1.6L CBC/BMP Laboratory Tests 01/31/21 17:22 02/01/21 09:02 Microbiology Microbiology 01/31/21 Blood Culture, Received Pending 01/31/21 Blood Culture, Received Pending Allergies Coded Allergies: No Known Allergies (Unverified , 01/31/21) Home Medications Scheduled Hydroxyurea (Hydroxyurea) 500 Mg Capsule, 500 MG PO DAILY, (Reported) HAMILTON ANDINO MD February 01, 2021 12:47
--- NOTE | 2021-02-01 14:05 | IPNPDOC ---
Text Note Date of Service The patient was seen on 02/01/21. NOTE SUBJECTIVE: The patient reports that his pain is significantly better today, and overall he is feeling much better after having received blood transfusions. He is no longer short of breath. He is not having any acute complaints at this time. He is just feeling fatigued. Otherwise, the remainder of his review of systems is negative. PHYSICAL EXAMINATION: VITAL SIGNS: please see below General: NAD, comfortable HEENT: PERRLA, EOMI, sclerae clear Neck: supple, normal ROM, no JVD Respiratory: lungs CTAB, no wheeze, no rales, no crackles CVS: RRR, normal S1, S2, no murmurs Abdo: soft, no masses, no hepatosplenomegaly, BS+, no rebound tenderness Extremities: no edema, pulses 2+ Psych: calm, cooperative, AAO x 3 ASSESSMENT: 45-year-old male with a history of sickle cell anemia, presented to the ER with 24-hour history of severe lower extremity pain as well as shortness of breath with an episode of hematochezia on 01/30/21. PLAN: Sickle cell crisis: - patient is afebrile without leukocytosis, infectious etiology unlikely - Hgb significantly improved this morning after having received 4 units of blood - pain control with morphine 2 mg q2h prn for breakthrough with percocet q4h prn -Continue folic acid -Continue IVF -Continue hydroxyurea -Continue lovenox 40 mg qc due to hypercoagulable state - Hematology consult was already placed upon admission. Apparently they're going to stop by today to evaluate the patient, their input will be greatly appreciated. Hematochezia - patient reports bright red blood per rectum with brown stool every few months, most recently occurring the morning prior to admission - transfuse for Hgb < 8 - will likely require colonoscopy, if H&H continues to drop then we will likely do this and patient. If H&H remains stable throughout admission, then recommend having this performed as an outpatient. Hypomagnesemia -[place] ordered Elevated D dimer - CTA chest showing no PE - c/w lovenox 40 mg sc daily Fusiform dilatation of the ascending thoracic aorta - monitor OP Dispo: pending clinical improvement, and stable H&H VS,Fishbone, I+O VS, Fishbone, I+O Laboratory Tests 01/31/21 17:22 02/01/21 09:02 Vital Signs Date Time Temp Pulse Resp B/P (MAP) Pulse Ox O2 Delivery O2 Flow Rate FiO2 02/01/21 11:00 16 Room Air 02/01/21 08:40 97.1 52 129/81 96 I&O- Last 24 Hours up to 6 AM 02/01/21 06:00 Intake Total 4728 ml Output Total 1225 ml Balance 3503 ml ABHIJEET OLMOS DO February 01, 2021 14:05
[2021-02-01] MEDS ORDERED: MAG SULF 1GM/100ML (MAG RUN) 1 GM in IV 1 EA IV ONE (15:00)
[2021-02-02] MEDS: NS 1,000 ML IV SCH ×2 (00:38→07:21)
[2021-02-02 06:00] VITALS: BP 136/79
[2021-02-02 06:01] LABS: HEMATOCRIT 28.4 % (42.0-52.0); HEMOGLOBIN 9.8 g/dl (13.5-17.5); MEAN CORPUSCULAR HEMOGLOBIN 32.5 pg (27.0-33.0); MEAN CORPUSCULAR HGB CONC 34.5 g/dl (32.0-36.5); PLATELET COUNT, AUTOMATED 103 10^3/uL (150-450); RED BLOOD COUNT 3.02 10^6/uL (4.30-6.10); WHITE BLOOD COUNT 11.3 10^3/uL (4.0-10.0)
[2021-02-02 06:32] LABS: ALBUMIN 3.1 GM/DL (3.2-5.2); ALT/SGPT 62 U/L (12-78); BILIRUBIN,TOTAL 5.5 MG/DL (0.2-1.0); BLOOD UREA NITROGEN 10 MG/DL (7-18); CALCIUM LEVEL 9.5 MG/DL (8.5-10.1); CARBON DIOXIDE LEVEL 25 MEQ/L (21-32); CHLORIDE LEVEL 114 MEQ/L (98-107); CREATININE FOR GFR 0.79 MG/DL (0.70-1.30); GLOMERULAR FILTRATION RATE > 60.0 (>60); GLUCOSE, FASTING 87 MG/DL (70-100); MAGNESIUM LEVEL 1.5 MG/DL (1.8-2.4); POTASSIUM SERUM 4.7 MEQ/L (3.5-5.1); SODIUM LEVEL 143 MEQ/L (136-145); TOTAL PROTEIN 6.5 GM/DL (6.4-8.2)
[2021-02-02 06:38] LABS: BASOPHILS 1 % (0-1); EOSINOPHILS 5 % (0-3); LYMPHOCYTES 53 % (16-44); MONOCYTES 8 % (0-5); NEUTROPHILS 33 % (28-66); PLATELET ESTIMATE DECREASED (NORMAL); SICKLE CELLS 2+
[2021-02-02 06:39] LABS: ANISOCYTOSIS 1+; POIKILOCYTOSIS 2+
[2021-02-02] MEDS: MAG SULF 1GM/100ML (MAG RUN) 1 GM in IV 1 EA IV SCH ×2 (07:23→08:36)
[2021-02-02] MEDS: DOCUSATE SODIUM 100MG CAPSULE PO SCH (08:36)
[2021-02-02] MEDS: ENOXAPARIN 40MG/0.4ML SYRINGE (J1650 PER 10MG) SC SCH (08:36)
[2021-02-02] MEDS: PERCOCET 5MG/325MG TAB PO PRN (08:37)
[2021-02-02] MEDS ORDERED: FOLI1TAB11 PO (11:03)
--- NOTE | 2021-02-02 11:09 | DS.PDOC ---
Discharge Summary General Date of Admission Jan 31, 2021 at 20:51 Date of Discharge 02/02/2021 Discharge Summary PROCEDURES PERFORMED DURING STAY: [None]. ADMITTING DIAGNOSES / DISCHARGE DIAGNOSES: s/p Sickle cell crisis Hematochezia Hypomagnesemia Elevated D dimer Fusiform dilatation of the ascending thoracic aorta DVT prophylaxis COMPLICATIONS/CHIEF COMPLAINT: Anemia / Pain HISTORY OF PRESENT ILLNESS: Patient is a 45-year-old male with a past medical history of sickle cell anemia who presented to the ER with 24. History of severe lower extremity pain as well as shortness of breath. Patient had a single episode of hematochezia. Upon arrival to emergency room, patient was found to be severely anemic and suspected to be in sickle cell crisis. Patient was admitted to the hospitalist service fo r further evaluation and treatment. Hematology was called on consultation. HOSPITAL COURSE: s/p Sickle cell crisis - Patient reports that he feels relatively fine. Denies any pain or shortness of breath currently - Review of systems is negative for any source of infection - Hemodynamically stable and afebrile - Mild leukocytosis - s/p 4 units PRBC - c/w Folic acid and Hydroxyurea on discharge - Hematology on consultation; appreciate their input. Will have outpatient follow-up within the next 7 days Hematochezia - patient reports bright red blood per rectum with brown stool every few months, most recently occurring the morning prior to admission - Patient has not had another event since admission - Hemoglobin has remained stable after transfusions - Patient has been advised to seek colonoscopy as an outpatient Hypomagnesemia - Will supplement via IV route Elevated D dimer - CTA chest showing no PE Fusiform dilatation of the ascending thoracic aorta - Will have outpatient follow-up with primary care provider within the next 7 days DVT prophylaxis - Continue with Lovenox DISCHARGE MEDICATIONS: Please see below. ALLERGIES: Please see below. PHYSICAL EXAMINATION ON DISCHARGE: Objective: Vitals (See below) General: Lying in bed, no acute distress, comfortable, AAOx3 HEENT: NC, AT CVS: RRR, +S1S2 Lungs: Fair air entry b/l, -w/r/r Abdomen: Soft, ND, NT Extremities: - Edema, - Calf tenderness LABORATORY DATA: Please see below. IMAGING: CXR 01/31: No acute cardiopulmonary process appreciated. CTA 01/31: 1. There is fusiform dilatation of the ascending thoracic aorta which measures 3.7 cm. maximally. There is no dissection or saccular component. 2. There are no pulmonary emboli. 3. No acute pulmonary parenchymal abnormalities. ACTIVITY: [As tolerated]. DISCHARGE PLAN: Follow-up with primary care provider and hematology within the next 7 days Remain compliant with treatment plan and medications Return to the ER if you experience any problems DISPOSITION: Home with services DISCHARGE CONDITION: [Stable]. TIME SPENT ON DISCHARGE: 35 minutes. Vital Signs/I&Os Vital Signs Date Time Temp Pulse Resp B/P (MAP) Pulse Ox O2 Delivery O2 Flow Rate FiO2 02/02/21 09:10 16 Room Air 02/02/21 06:00 97.3 60 136/79 (98) 100 I&O- Last 24 Hours up to 6 AM 02/02/21 06:00 Intake Total 3455 ml Output Total 3425 ml Balance 30 ml Laboratory Data Labs 24H Laboratory Tests 2 02/02/21 05:48: Neutrophils (%) (Auto) , Nucleated Red Blood Cells % (auto) 3.7H, Neutrophils 33, Lymphocytes (Manual) 53H, Monocytes (Manual) 8H, Eosinophils (Manual) 5H, Basophils (Manual) 1, Poikilocytosis 2+, Anisocytosis 1+, Macrocytosis 1+, Sickle Cells 2+, Platelet Estimate DECREASED, Anion Gap 4L, Glomerular Filtration Rate > 60.0, Calcium Level 9.5, Magnesium Level 1.5L, Total Bilirubin 5.5H, Aspartate Amino Transf (AST/SGOT) 72H, Alanine Aminotransferase (ALT/SGPT) 62, Alkaline Phosphatase 136H, Total Protein 6.5, Albumin 3.1L, Albumin/Globulin Ratio 0.9 CBC/BMP Laboratory Tests 02/02/21 05:48 Microbiology Microbiology 01/31/21 Blood Culture - Preliminary, Resulted No growth after 24 hours . All specim... 01/31/21 Blood Culture - Preliminary, Resulted No growth after 24 hours . All specim... Discharge Medications Scheduled Folic Acid (Folic Acid) 1 Mg Tablet, 1 TAB PO DAILY Hydroxyurea (Hydroxyurea) 500 Mg Capsule, 500 MG PO DAILY, (Reported) Allergies Coded Allergies: No Known Allergies (Unverified , 01/31/21) MARY JO CORREA MD February 02, 2021 11:09
[2021-02-02 12:48] LABS: HEMATOCRIT 29.4 % (42.0-52.0); HEMOGLOBIN 9.8 g/dl (13.5-17.5)
== END 2021-02-02 13:39 | disposition home health service (06) | DRG 812 ==
LOC: M ED 16:42 → M ED INP 20:51 → ENRESERV 21:51 → M MSPAV 22:53
PROVIDERS: ADMIT Family Medicine; ATTEND Internal Medicine
PROC: 30233N1 Transfusion of Nonautologous Red Blood Cells into Peripheral Vein, Percutaneous Approach (ICD-10-PCS; principal; 2021-01-31)
DX: D57.00 Hb-SS disease with crisis, unspecified (principal); K92.1 Melena; R06.02 Shortness of breath; E83.42 Hypomagnesemia; K64.9 Unspecified hemorrhoids; I77.810 Thoracic aortic ectasia; M79.661 Pain in right lower leg; M79.662 Pain in left lower leg; Z90.49 Acquired absence of other specified parts of digestive tract; Z90.81 Acquired absence of spleen; D72.829 Elevated white blood cell count, unspecified; R79.1 Abnormal coagulation profile; R00.1 Bradycardia, unspecified; Z79.899 Other long term (current) drug therapy; Z20.822 Contact with and (suspected) exposure to COVID-19; Z87.891 Personal history of nicotine dependence

== ENCOUNTER 2021-11-02 10:13 | Observation (INO) | payer MEDICARE, OTHER ==
[~2021-11-02] VITALS: Ht 177.8 cm; Wt 62.5 kg
[~2021-11-02 10:13] MED LIST changes: +HYDR500C3 PO; +PERC5TAB12 PO
[2021-11-02] MEDS ORDERED: GI COCKTAIL 50ML BTL(HYOSCYAMINE/MAALOX/LIDOCAINE VISCOUS)(1:3:1) PO ONE (10:50)
[2021-11-02] MEDS ORDERED: NS 1,880 ML in IV 1 EA IV ONE (10:50)
[2021-11-02] MEDS: MORPHINE 2 MG/ML 1ML VIAL (J2270) IV PRN ×4 (11:36→22:10)
[2021-11-02 12:12] LABS: CK-MB VALUE MASS < 1.0 NG/ML (<3.6); CPK CREATINE PHOSPHOKINASE 85 U/L (39-308); MB/CK RELATIVE INDEX 1.18 (< OR =4)
[2021-11-02 12:20] LABS: ALBUMIN 3.2 GM/DL (3.2-5.2); ALT/SGPT 85 U/L (12-78); BILIRUBIN,DIRECT 2.7 MG/DL (0.0-0.2); BILIRUBIN,TOTAL 9.3 MG/DL (0.2-1.0); BLOOD UREA NITROGEN 16 MG/DL (7-18); CALCIUM LEVEL 9.6 MG/DL (8.5-10.1); CARBON DIOXIDE LEVEL 23 MEQ/L (21-32); CHLORIDE LEVEL 111 MEQ/L (98-107); CREATININE FOR GFR 0.78 MG/DL (0.70-1.30); FERRITIN 8090 NG/ML (26-388); GLOMERULAR FILTRATION RATE > 60.0 (>60); GLUCOSE, FASTING 114 MG/DL (70-100); LDH LACTATE DEHYDROGENASE 894 U/L (87-241); LIPASE 154 U/L (73-393); POTASSIUM SERUM 4.6 MEQ/L (3.5-5.1); SODIUM LEVEL 141 MEQ/L (136-145); TOTAL PROTEIN 7.2 GM/DL (6.4-8.2)
[2021-11-02 12:24] LABS: BASO # 0.2 10^3/uL (0.0-0.2); BASO % 1.6 % (0.0-1.0); EOS # 0.6 10^3/uL (0.0-0.5); LYMPH # 4.1 10^3/uL (1.5-5.0); LYMPH % 29.1 % (24.0-44.0); MEAN CORPUSCULAR HEMOGLOBIN 32.1 pg (27.0-33.0); MEAN CORPUSCULAR HGB CONC 35.5 g/dl (32.0-36.5); MEAN CORPUSCULAR VOLUME 90.4 fl (80.0-96.0); MONO % 13.5 % (2.0-8.0); NEUTROPHILS % 49.4 % (36.0-66.0); PLATELET COUNT, AUTOMATED 133 10^3/uL (150-450); RED BLOOD COUNT 2.18 10^6/uL (4.30-6.10); WHITE BLOOD COUNT 14.1 10^3/uL (4.0-10.0)
[2021-11-02 12:25] LABS: HEMATOCRIT 19.7 % (42.0-52.0)
[2021-11-02 12:39] LABS: MONO # 1.9 10^3/uL (0.0-0.8)
[2021-11-02 12:47] LABS: SICKLE CELLS 4+
[2021-11-02 12:48] LABS: ANISOCYTOSIS 4+
[2021-11-02 12:49] LABS: POLYCHROMASIA 1+
[2021-11-02 12:50] LABS: POIKILOCYTOSIS 2+; SCHISTOCYTES 1+
[2021-11-02 12:52] LABS: OVALOCYTES 1+; PLATELET ESTIMATE NORMAL (NORMAL)
[2021-11-02] MEDS ORDERED: KETOROLAC 30 MG/ML 1ML VIAL IV ONE (13:05)
[2021-11-02] MEDS ORDERED: FOLI1TAB11 PO (14:38)
[2021-11-02] MEDS ORDERED: HOME MED LIST COMPLETE! XX SCH (14:40)
[2021-11-02 14:42] LABS: AMPHETAMINES LEVEL URINE NEGATIVE (NEGATIVE); BARBITURATES URINE NEGATIVE (NEGATIVE); BENZODIAZEPINES URINE NEGATIVE (NEGATIVE); CANNABINOIDS URINE NEGATIVE (NEGATIVE); COCAINE METABOLITE URINE NEGATIVE (NEGATIVE); METHADONE URINE NEGATIVE (NEGATIVE); OPIATES URINE POSITIVE (NEGATIVE); PHENCYCLIDINE URINE NEGATIVE (NEGATIVE)
[2021-11-02] MEDS ORDERED: MORPHINE 2 MG/ML 1ML VIAL (J2270) IV PRN (15:40)
[2021-11-02] MEDS ORDERED: ACETAMINOPHEN 500 MG TAB PO PRN (15:40)
[2021-11-02] MEDS: NS 0.45% 1,000 ML IV SCH ×2 (16:23→22:10)
[2021-11-02] MEDS: FOLIC ACID 1 MG TAB PO SCH (16:52)
[2021-11-02] MEDS: HYDROXYUREA 500 MG CAP PO SCH (17:41)
[2021-11-02 18:00] VITALS: BP 113/81
[2021-11-02 21:49] VITALS: BP 106/70
[2021-11-03] VITALS (14 sets, daily range): BP systolic 99–123; BP diastolic 61–76
[2021-11-03] MEDS: MORPHINE 2 MG/ML 1ML VIAL (J2270) IV PRN ×3 (05:26→17:24)
[2021-11-03] MEDS ORDERED: ENOXAPARIN 40MG/0.4ML SYRINGE (J1650 PER 10MG) SC SCH (09:00)
[2021-11-03] MEDS: NS 0.45% 1,000 ML IV SCH (09:11)
[2021-11-03 09:29] LABS: MEAN CORPUSCULAR HEMOGLOBIN 32.8 pg (27.0-33.0); MEAN CORPUSCULAR HGB CONC 35.7 g/dl (32.0-36.5); MEAN CORPUSCULAR VOLUME 91.9 fl (80.0-96.0); PLATELET COUNT, AUTOMATED 101 10^3/uL (150-450); RED BLOOD COUNT 1.86 10^6/uL (4.30-6.10); WHITE BLOOD COUNT 16.2 10^3/uL (4.0-10.0)
[2021-11-03 09:32] LABS: HEMATOCRIT 17.1 % (42.0-52.0); HEMOGLOBIN 6.1 g/dl (13.5-17.5)
[2021-11-03] MEDS: FOLIC ACID 1 MG TAB PO SCH (09:36)
[2021-11-03] MEDS: HYDROXYUREA 500 MG CAP PO SCH (09:38)
[2021-11-03] MEDS ORDERED: FOLI1TAB11 PO (09:41)
[2021-11-03] MEDS ORDERED: HYDR-3713 PO (09:41)
[2021-11-03] MEDS ORDERED: HYDR500C3 PO (09:41)
[2021-11-03 09:59] LABS: ALBUMIN 2.8 GM/DL (3.2-5.2); ALT/SGPT 78 U/L (12-78); BLOOD UREA NITROGEN 14 MG/DL (7-18); CALCIUM LEVEL 9.3 MG/DL (8.5-10.1); CARBON DIOXIDE LEVEL 25 MEQ/L (21-32); CHLORIDE LEVEL 111 MEQ/L (98-107); CREATININE FOR GFR 0.67 MG/DL (0.70-1.30); GLOMERULAR FILTRATION RATE > 60.0 (>60); GLUCOSE, FASTING 98 MG/DL (70-100); POTASSIUM SERUM 4.5 MEQ/L (3.5-5.1); SODIUM LEVEL 141 MEQ/L (136-145); TOTAL PROTEIN 6.5 GM/DL (6.4-8.2)
[2021-11-03 17:35] LABS: HEMATOCRIT 26.5 % (42.0-52.0); MEAN CORPUSCULAR HEMOGLOBIN 31.6 pg (27.0-33.0); MEAN CORPUSCULAR HGB CONC 35.1 g/dl (32.0-36.5); MEAN CORPUSCULAR VOLUME 90.1 fl (80.0-96.0); PLATELET COUNT, AUTOMATED 108 10^3/uL (150-450); RED BLOOD COUNT 2.94 10^6/uL (4.30-6.10); WHITE BLOOD COUNT 14.5 10^3/uL (4.0-10.0)
[2021-11-03 17:36] LABS: HEMOGLOBIN 9.3 g/dl (13.5-17.5)
== END 2021-11-03 18:30 | disposition home or self-care (01) ==
LOC: M ED 10:13 → M ED INP 10:14 → ENRESERV 16:22 → M MS5PR 17:04
PROVIDERS: ADMIT Family Medicine; ATTEND Family Medicine
DX: D57.09 Hb-SS disease with crisis with other specified complication (principal); I77.4 Celiac artery compression syndrome; R10.13 Epigastric pain; M79.606 Pain in leg, unspecified; Z87.891 Personal history of nicotine dependence; Z79.899 Other long term (current) drug therapy; Z90.49 Acquired absence of other specified parts of digestive tract; Z90.81 Acquired absence of spleen
CPT/HCPCS: 36415; 36430; 74176; 80048; 80053; 80076; 80307; 81001; 82550; 82553; 82728; 83605; 83615; 83690; 84484; 85025; 85027; 85046; 86850; 86900; 86901; 86920; 87040; 87798; 93005; 93041; 96361; 96372; 96374; 96375; 96376; 99285; G0378; J1650; J1885; J2270; P9016

== ENCOUNTER 2021-12-17 10:30 | Inpatient (IN) | payer MEDICARE, OTHER ==
[~2021-12-17] VITALS: Ht 177.8 cm; Wt 62.8 kg
[2021-12-17] MEDS: NS 1,000 ML IV SCH ×2 (07:59→19:47)
[~2021-12-17 10:30] MED LIST changes: +HYDR-3713 PO
[2021-12-17 13:56] LABS: MEAN CORPUSCULAR HEMOGLOBIN 33.3 pg (27.0-33.0); MEAN CORPUSCULAR HGB CONC 34.2 g/dl (32.0-36.5); MEAN CORPUSCULAR VOLUME 97.4 fl (80.0-96.0); PLATELET COUNT, AUTOMATED 205 10^3/uL (150-450); RED BLOOD COUNT 1.89 10^6/uL (4.30-6.10); WHITE BLOOD COUNT 16.2 10^3/uL (4.0-10.0)
[2021-12-17] MEDS ORDERED: PERCOCET 5MG/325MG TAB PO ONE (14:00)
[2021-12-17 14:01] LABS: HEMATOCRIT 18.4 % (42.0-52.0)
[2021-12-17 14:02] LABS: HEMOGLOBIN 6.3 g/dl (13.5-17.5)
[2021-12-17 14:09] LABS: INR 1.23; PROTHROMBIN TIME 15.9 SECONDS (12.7-14.5)
[2021-12-17 14:10] LABS: PARTIAL THROMBOPLASTIN TIME 40.6 SECONDS (25.9-37.0)
[2021-12-17] MEDS ORDERED: NS 1,000 ML IV ONE ×2 (14:15→16:30)
[2021-12-17 14:21] LABS: BASOPHILS 1 % (0-1); EOSINOPHILS 4 % (0-3); LYMPHOCYTES 24 % (16-44); METAMYELOCYTES 2 % (0-0); MONOCYTES 7 % (0-5); MYELOCYTES 1 % (0-0); NEUTROPHILS 61 % (28-66)
[2021-12-17 14:22] LABS: ANISOCYTOSIS 3+; OVALOCYTES 2+
[2021-12-17 14:23] LABS: PLATELET ESTIMATE NORMAL (NORMAL); POIKILOCYTOSIS 2+; SPHEROCYTES 3+
[2021-12-17 14:31] LABS: ALBUMIN 3.3 GM/DL (3.2-5.2); ALT/SGPT 135 U/L (12-78); BILIRUBIN,DIRECT 3.1 MG/DL (0.0-0.2); BILIRUBIN,TOTAL 6.4 MG/DL (0.2-1.0); BLOOD UREA NITROGEN 11 MG/DL (7-18); CALCIUM LEVEL 9.6 MG/DL (8.5-10.1); CARBON DIOXIDE LEVEL 27 MEQ/L (21-32); CHLORIDE LEVEL 113 MEQ/L (98-107); CREATININE FOR GFR 0.77 MG/DL (0.70-1.30); GLOMERULAR FILTRATION RATE > 60.0 (>60); GLUCOSE, FASTING 85 MG/DL (70-100); LIPASE 287 U/L (73-393); POTASSIUM SERUM 4.6 MEQ/L (3.5-5.1); SODIUM LEVEL 143 MEQ/L (136-145); TOTAL PROTEIN 7.2 GM/DL (6.4-8.2); URIC ACID 8.1 MG/DL (3.5-7.2)
[2021-12-17] MEDS ORDERED: ISOVUE-370 76% 100ML VIAL As Ordered ONE (14:43)
[2021-12-17] MEDS ORDERED: PIPERACILLIN/TAZOBACTAM SOD 3.375 GM in D5W MINI-BAG PLUS 50 ML IV ONE (15:05)
[2021-12-17 15:22] LABS: RSV AMPLIFICATION NEGATIVE (NEGATIVE)
[2021-12-17] MEDS ORDERED: ENOXAPARIN 40MG/0.4ML SYRINGE (J1650 PER 10MG) SC ONE (15:50)
[2021-12-17] MEDS ORDERED: HYDROXYUREA 500 MG CAP PO ONE (15:55)
[2021-12-17] MEDS ORDERED: FOLIC ACID 1 MG TAB PO ONE (15:55)
[2021-12-17] MEDS ORDERED: OXYC10TA3 PO (17:08)
[2021-12-17] MEDS ORDERED: HOME MED LIST COMPLETE! XX SCH (17:10)
[2021-12-17] MEDS: MORPHINE 4 MG/ML 1ML VIAL/SYRINGE (J2270) IV PRN ×2 (18:23→21:39)
[2021-12-17 18:41] VITALS: BP 108/64
[2021-12-17 19:50] VITALS: BP 112/66
[2021-12-17 22:11] VITALS: BP 115/67
[2021-12-17 22:33] VITALS: BP 111/68
[2021-12-18] VITALS (17 sets, daily range): BP systolic 103–148; BP diastolic 55–81
[2021-12-18] MEDS: MORPHINE 4 MG/ML 1ML VIAL/SYRINGE (J2270) IV PRN ×5 (01:41→18:20)
[2021-12-18 04:21] LABS: HEMATOCRIT 23.1 % (42.0-52.0); HEMOGLOBIN 7.9 g/dl (13.5-17.5)
[2021-12-18] MEDS ORDERED: ONDANSETRON 4MG/2ML VIAL IV PRN (07:40)
[2021-12-18] MEDS: NS 1,000 ML IV SCH ×2 (07:59→15:18)
[2021-12-18] MEDS ORDERED: PERCOCET 5MG/325MG TAB PO ONE (08:00)
[2021-12-18] MEDS: HYDROXYUREA 500 MG CAP PO SCH (08:01)
[2021-12-18] MEDS: FOLIC ACID 1 MG TAB PO SCH (08:01)
[2021-12-18] MEDS: ENOXAPARIN 40MG/0.4ML SYRINGE (J1650 PER 10MG) SC SCH (08:01)
[2021-12-18 08:34] LABS: ALT/SGPT 116 U/L (12-78); BILIRUBIN,TOTAL 7.5 MG/DL (0.2-1.0); BLOOD UREA NITROGEN 10 MG/DL (7-18); CARBON DIOXIDE LEVEL 25 MEQ/L (21-32); CHLORIDE LEVEL 114 MEQ/L (98-107); CREATININE FOR GFR 0.83 MG/DL (0.70-1.30); GLOMERULAR FILTRATION RATE > 60.0 (>60); GLUCOSE, FASTING 116 MG/DL (70-100); POTASSIUM SERUM 4.5 MEQ/L (3.5-5.1); SODIUM LEVEL 142 MEQ/L (136-145); TOTAL PROTEIN 6.5 GM/DL (6.4-8.2)
[2021-12-18 18:28] LABS: HEMATOCRIT 27.6 % (42.0-52.0); HEMOGLOBIN 9.7 g/dl (13.5-17.5)
[2021-12-18] MEDS ORDERED: HYDROMORPHONE HCL 0.5 MG/ 0.5 ML SYRINGE (J1170 PER 1) IV ONE (18:30)
[2021-12-18] MEDS ORDERED: NS 1,000 ML IV SCH (19:45)
[2021-12-19] VITALS (9 sets, daily range): BP systolic 106–125; BP diastolic 57–78
[2021-12-19] MEDS: PERCOCET 5MG/325MG TAB PO PRN ×2 (00:31→04:39)
[2021-12-19] MEDS ORDERED: SODIUM CHLORIDE 0.9% 1000ML IV SCH (00:40)
[2021-12-19] MEDS ORDERED: ACETAMINOPHEN TAB 650MG DOSE (2X325MG) PO ONE (00:45)
[2021-12-19] MEDS ORDERED: VANCOMYCIN HCL 750 MG, VIAL MATE ADAPTER 1 EACH in NS 250 ML IV ONE ×2 (01:00→02:00)
[2021-12-19 01:08] LABS: HEMATOCRIT 26.2 % (42.0-52.0); HEMOGLOBIN 9.4 g/dl (13.5-17.5); MEAN CORPUSCULAR HEMOGLOBIN 30.6 pg (27.0-33.0); MEAN CORPUSCULAR HGB CONC 35.9 g/dl (32.0-36.5); MEAN CORPUSCULAR VOLUME 85.3 fl (80.0-96.0); PLATELET COUNT, AUTOMATED 157 10^3/uL (150-450); RED BLOOD COUNT 3.07 10^6/uL (4.30-6.10); WHITE BLOOD COUNT 15.7 10^3/uL (4.0-10.0)
[2021-12-19] MEDS ORDERED: VANCOMYCIN HCL 1,000 MG, VIAL MATE ADAPTER 1 EACH in NS 250 ML IV SCH ×2 (01:10→08:00)
[2021-12-19 01:31] LABS: ALBUMIN 2.8 GM/DL (3.2-5.2); ALT/SGPT 117 U/L (12-78); BILIRUBIN,TOTAL 12.8 MG/DL (0.2-1.0); BLOOD UREA NITROGEN 14 MG/DL (7-18); CALCIUM LEVEL 8.8 MG/DL (8.5-10.1); CARBON DIOXIDE LEVEL 21 MEQ/L (21-32); CHLORIDE LEVEL 116 MEQ/L (98-107); CREATININE FOR GFR 0.91 MG/DL (0.70-1.30); GLOMERULAR FILTRATION RATE > 60.0 (>60); GLUCOSE, FASTING 82 MG/DL (70-100); POTASSIUM SERUM 4.5 MEQ/L (3.5-5.1); SODIUM LEVEL 142 MEQ/L (136-145); TOTAL PROTEIN 6.4 GM/DL (6.4-8.2)
[2021-12-19 01:44] LABS: BASOPHILS 4 % (0-1); EOSINOPHILS 1 % (0-3); LYMPHOCYTES 14 % (16-44); MONOCYTES 10 % (0-5); MYELOCYTES 2 % (0-0); NEUTROPHILS 69 % (28-66); SICKLE CELLS 3+
[2021-12-19 01:45] LABS: ANISOCYTOSIS 1+; MICROCYTOSIS 1+; POIKILOCYTOSIS 2+; POLYCHROMASIA 1+; SCHISTOCYTES 1+
[2021-12-19 01:46] LABS: PLATELET ESTIMATE DECREASED (NORMAL)
[2021-12-19 02:16] LABS: BILIRUBIN,DIRECT 6.9 MG/DL (0.0-0.2)
[2021-12-19] MEDS: MORPHINE 4 MG/ML 1ML VIAL/SYRINGE (J2270) IV PRN ×3 (02:16→20:27)
[2021-12-19] MEDS ORDERED: FUROSEMIDE 100MG/10ML VIAL (J1940) IV STA (02:36)
[2021-12-19] MEDS: PIPERACILLIN/TAZOBACTAM SOD 4.5 GM in D5W MINI-BAG PLUS 50 ML IV SCH ×4 (03:08→20:15)
[2021-12-19 06:09] LABS: HEMATOCRIT 27.2 % (42.0-52.0); HEMOGLOBIN 9.7 g/dl (13.5-17.5); MEAN CORPUSCULAR HEMOGLOBIN 30.5 pg (27.0-33.0); MEAN CORPUSCULAR HGB CONC 35.7 g/dl (32.0-36.5); MEAN CORPUSCULAR VOLUME 85.5 fl (80.0-96.0); PLATELET COUNT, AUTOMATED 152 10^3/uL (150-450); RED BLOOD COUNT 3.18 10^6/uL (4.30-6.10); WHITE BLOOD COUNT 16.6 10^3/uL (4.0-10.0)
[2021-12-19 06:34] LABS: ALBUMIN 2.9 GM/DL (3.2-5.2); ALT/SGPT 121 U/L (12-78); BILIRUBIN,TOTAL 13.6 MG/DL (0.2-1.0); BLOOD UREA NITROGEN 14 MG/DL (7-18); CALCIUM LEVEL 9.4 MG/DL (8.5-10.1); CARBON DIOXIDE LEVEL 23 MEQ/L (21-32); CHLORIDE LEVEL 114 MEQ/L (98-107); CREATININE FOR GFR 1.02 MG/DL (0.70-1.30); GLOMERULAR FILTRATION RATE > 60.0 (>60); GLUCOSE, FASTING 86 MG/DL (70-100); POTASSIUM SERUM 4.3 MEQ/L (3.5-5.1); SODIUM LEVEL 142 MEQ/L (136-145); TOTAL PROTEIN 6.4 GM/DL (6.4-8.2)
[2021-12-19] MEDS ORDERED: HYDROMORPHONE HCL 0.5 MG/ 0.5 ML SYRINGE (J1170 PER 1) IV ONE (08:40)
[2021-12-19] MEDS: ENOXAPARIN 40MG/0.4ML SYRINGE (J1650 PER 10MG) SC SCH (08:40)
[2021-12-19] MEDS: FOLIC ACID 1 MG TAB PO SCH (08:40)
[2021-12-19] MEDS: HYDROXYUREA 500 MG CAP PO SCH (08:40)
[2021-12-19] MEDS ORDERED: ISOVUE-370 76% 100ML VIAL As Ordered ONE (08:46)
[2021-12-19 10:23] LABS: HEPATITIS B CORE ANTIBODY IGM NEGATIVE (NEGATIVE); HEPATITIS B SURFACE ANTIGEN NEGATIVE (NEGATIVE); HEPATITIS C VIRUS ABY INDEX 0.2 INDEX (<0.8)
[2021-12-19 13:41] LABS: CK-MB VALUE MASS < 1.0 NG/ML (<3.6); CPK CREATINE PHOSPHOKINASE 56 U/L (39-308); MB/CK RELATIVE INDEX 1.79 (< OR =4)
[2021-12-19] MEDS: IBUPROFEN 200MG TAB PO PRN (17:24)
[2021-12-20] MEDS: PERCOCET 5MG/325MG TAB PO PRN ×3 (00:12→13:45)
[2021-12-20] MEDS: PIPERACILLIN/TAZOBACTAM SOD 4.5 GM in D5W MINI-BAG PLUS 50 ML IV SCH ×4 (02:20→20:22)
[2021-12-20 04:05] VITALS: BP 102/58
[2021-12-20 07:22] LABS: HEMATOCRIT 26.7 % (42.0-52.0); HEMOGLOBIN 9.3 g/dl (13.5-17.5); MEAN CORPUSCULAR HEMOGLOBIN 29.6 pg (27.0-33.0); MEAN CORPUSCULAR HGB CONC 34.8 g/dl (32.0-36.5); PLATELET COUNT, AUTOMATED 148 10^3/uL (150-450); RED BLOOD COUNT 3.14 10^6/uL (4.30-6.10); WHITE BLOOD COUNT 14.6 10^3/uL (4.0-10.0)
[2021-12-20 08:04] LABS: ALBUMIN 2.7 GM/DL (3.2-5.2); ALT/SGPT 119 U/L (12-78); BILIRUBIN,TOTAL 19.7 MG/DL (0.2-1.0); BLOOD UREA NITROGEN 21 MG/DL (7-18); CALCIUM LEVEL 9.3 MG/DL (8.5-10.1); CARBON DIOXIDE LEVEL 24 MEQ/L (21-32); CHLORIDE LEVEL 113 MEQ/L (98-107); CREATININE FOR GFR 1.13 MG/DL (0.70-1.30); GLOMERULAR FILTRATION RATE > 60.0 (>60); GLUCOSE, FASTING 83 MG/DL (70-100); NT-PRO BNP 3329 PG/ML (<125); POTASSIUM SERUM 4.1 MEQ/L (3.5-5.1); SODIUM LEVEL 144 MEQ/L (136-145); TOTAL PROTEIN 6.2 GM/DL (6.4-8.2)
[2021-12-20 08:06] LABS: ATYPICAL LYMPH 4 % (0-5); BASOPHILS 1 % (0-1); EOSINOPHILS 1 % (0-3); LYMPHOCYTES 23 % (16-44); MONOCYTES 6 % (0-5); NEUTROPHILS 65 % (28-66); PLATELET ESTIMATE NORMAL (NORMAL)
[2021-12-20 08:07] LABS: ANISOCYTOSIS 2+; SICKLE CELLS 3+
[2021-12-20 08:08] LABS: POIKILOCYTOSIS 1+
[2021-12-20 08:21] VITALS: BP 122/69
[2021-12-20] MEDS: FOLIC ACID 1 MG TAB PO SCH (08:28)
[2021-12-20] MEDS: ENOXAPARIN 40MG/0.4ML SYRINGE (J1650 PER 10MG) SC SCH (08:28)
[2021-12-20] MEDS: HYDROXYUREA 500 MG CAP PO SCH (08:28)
[2021-12-20 12:06] LABS: ANTINUCLEAR ANTIBODIES DIRECT Negative (Negative)
[2021-12-20] MEDS: MORPHINE 4 MG/ML 1ML VIAL/SYRINGE (J2270) IV PRN ×3 (15:34→20:41)
[2021-12-20 15:57] VITALS: BP 110/69
[2021-12-20 19:51] VITALS: BP 116/67
[2021-12-21] MEDS: PIPERACILLIN/TAZOBACTAM SOD 4.5 GM in D5W MINI-BAG PLUS 50 ML IV SCH (02:09)
[2021-12-21 03:50] VITALS: BP 117/64
[2021-12-21 06:30] LABS: HEMATOCRIT 25.4 % (42.0-52.0); HEMOGLOBIN 9.1 g/dl (13.5-17.5); MEAN CORPUSCULAR HEMOGLOBIN 30.3 pg (27.0-33.0); MEAN CORPUSCULAR HGB CONC 35.8 g/dl (32.0-36.5); MEAN CORPUSCULAR VOLUME 84.7 fl (80.0-96.0); PLATELET COUNT, AUTOMATED 163 10^3/uL (150-450); WHITE BLOOD COUNT 14.3 10^3/uL (4.0-10.0)
[2021-12-21 06:59] LABS: ATYPICAL LYMPH 5 % (0-5); BASOPHILS 1 % (0-1); EOSINOPHILS 6 % (0-3); LYMPHOCYTES 17 % (16-44); MONOCYTES 17 % (0-5); NEUTROPHILS 53 % (28-66)
[2021-12-21 07:00] LABS: PLATELET ESTIMATE NORMAL (NORMAL); SICKLE CELLS 2+
[2021-12-21 07:01] LABS: SCHISTOCYTES 1+
[2021-12-21 07:04] LABS: ALBUMIN 2.8 GM/DL (3.2-5.2); ALT/SGPT 113 U/L (12-78); BLOOD UREA NITROGEN 16 MG/DL (7-18); CALCIUM LEVEL 9.5 MG/DL (8.5-10.1); CARBON DIOXIDE LEVEL 25 MEQ/L (21-32); CHLORIDE LEVEL 115 MEQ/L (98-107); CREATININE FOR GFR 1.13 MG/DL (0.70-1.30); GLOMERULAR FILTRATION RATE > 60.0 (>60); GLUCOSE, FASTING 89 MG/DL (70-100); POTASSIUM SERUM 4.1 MEQ/L (3.5-5.1); SODIUM LEVEL 145 MEQ/L (136-145); TOTAL PROTEIN 6.9 GM/DL (6.4-8.2)
[2021-12-21 08:00] VITALS: BP 127/79
[2021-12-21] MEDS: HYDROXYUREA 500 MG CAP PO SCH (08:25)
[2021-12-21] MEDS: FOLIC ACID 1 MG TAB PO SCH (08:25)
[2021-12-21] MEDS: ENOXAPARIN 40MG/0.4ML SYRINGE (J1650 PER 10MG) SC SCH (08:25)
[2021-12-21] MEDS: DOXYCYCLINE HYCLATE 100 MG in D5W MINI-BAG PLUS 100 ML IV SCH ×2 (08:26→21:27)
[2021-12-21 12:12] VITALS: BP 126/73
[2021-12-21] MEDS: IBUPROFEN 200MG TAB PO PRN (12:20)
[2021-12-21] MEDS: PERCOCET 5MG/325MG TAB PO PRN ×2 (13:39→17:49)
[2021-12-21 20:00] VITALS: BP 137/78
[2021-12-22] VITALS: BP 134/76
[2021-12-22 04:00] VITALS: BP 133/73
[2021-12-22 06:14] LABS: HEMATOCRIT 27.2 % (42.0-52.0); HEMOGLOBIN 9.4 g/dl (13.5-17.5); MEAN CORPUSCULAR HEMOGLOBIN 30.6 pg (27.0-33.0); MEAN CORPUSCULAR HGB CONC 34.6 g/dl (32.0-36.5); MEAN CORPUSCULAR VOLUME 88.6 fl (80.0-96.0); PLATELET COUNT, AUTOMATED 164 10^3/uL (150-450); RED BLOOD COUNT 3.07 10^6/uL (4.30-6.10); WHITE BLOOD COUNT 12.7 10^3/uL (4.0-10.0)
[2021-12-22 06:43] LABS: ALBUMIN 2.8 GM/DL (3.2-5.2); ALT/SGPT 109 U/L (12-78); BILIRUBIN,TOTAL 11.6 MG/DL (0.2-1.0); BLOOD UREA NITROGEN 13 MG/DL (7-18); CALCIUM LEVEL 9.7 MG/DL (8.5-10.1); CARBON DIOXIDE LEVEL 25 MEQ/L (21-32); CHLORIDE LEVEL 112 MEQ/L (98-107); GLOMERULAR FILTRATION RATE > 60.0 (>60); GLUCOSE, FASTING 85 MG/DL (70-100); POTASSIUM SERUM 4.1 MEQ/L (3.5-5.1); SODIUM LEVEL 142 MEQ/L (136-145); TOTAL PROTEIN 6.6 GM/DL (6.4-8.2)
[2021-12-22 07:11] LABS: ANISOCYTOSIS 2+; ATYPICAL LYMPH 1 % (0-5); BASOPHILS 2 % (0-1); EOSINOPHILS 9 % (0-3); LYMPHOCYTES 21 % (16-44); MONOCYTES 15 % (0-5); NEUTROPHILS 52 % (28-66); PLATELET ESTIMATE NORMAL (NORMAL)
[2021-12-22 07:12] LABS: GIANT PLATELETS 1+; SICKLE CELLS 2+
[2021-12-22] MEDS ORDERED: DOXY-350 PO (07:16)
[2021-12-22] MEDS ORDERED: BACITAB PO (07:16)
[2021-12-22 08:00] VITALS: BP 154/73
[2021-12-22] MEDS: HYDROXYUREA 500 MG CAP PO SCH (08:20)
[2021-12-22] MEDS: FOLIC ACID 1 MG TAB PO SCH (08:20)
[2021-12-22] MEDS: ENOXAPARIN 40MG/0.4ML SYRINGE (J1650 PER 10MG) SC SCH (08:20)
[2021-12-22] MEDS: DOXYCYCLINE HYCLATE 100 MG in D5W MINI-BAG PLUS 100 ML IV SCH (08:21)
[2021-12-22] MEDS ORDERED: OXYC1TAB23 PO (09:11)
[2021-12-24] MEDS ORDERED: HYDR500C3 PO (12:02)
[2021-12-24] MEDS ORDERED: FOLI1TAB11 PO (12:02)
[2021-12-24] MEDS ORDERED: PERC7.5T11 PO ×2 (12:10→12:54)
== END 2021-12-22 11:34 | disposition home or self-care (01) | DRG 811 ==
LOC: M ED 10:30 → EEVIPCON 15:50 → M ED INP 15:50 → ENRESERV 16:59 → M PCU 18:35
PROVIDERS: ADMIT General Practice; ATTEND General Practice
PROC: 30233N1 Transfusion of Nonautologous Red Blood Cells into Peripheral Vein, Percutaneous Approach (ICD-10-PCS; principal; 2021-12-17)
DX: D57.00 Hb-SS disease with crisis, unspecified (principal); J15.212 Pneumonia due to Methicillin resistant Staphylococcus aureus; J90 Pleural effusion, not elsewhere classified; Z87.891 Personal history of nicotine dependence; R74.01 Elevation of levels of liver transaminase levels; Z79.899 Other long term (current) drug therapy; R16.0 Hepatomegaly, not elsewhere classified; E80.6 Other disorders of bilirubin metabolism; Z90.49 Acquired absence of other specified parts of digestive tract; I27.20 Pulmonary hypertension, unspecified

== ENCOUNTER 2022-02-26 13:50 | Outpatient (CLI) | payer MEDICARE, OTHER ==
[~2022-02-26] VITALS: Ht 175.3 cm; Wt 62.0 kg
[~2022-02-26 13:50] MED LIST changes: +BACITAB PO; +DOXY-350 PO; +OXYC10TA3 PO; +OXYC1TAB23 PO; +PERC7.5T11 PO
[2022-02-26 14:00] VITALS: BP 114/63
[2022-02-26] MEDS ORDERED: ACETAMINOPHEN TAB 650MG DOSE (2X325MG) PO ONE (14:45)
[2022-02-26] MEDS ORDERED: diphenhydrAMINE 25MG CAP PO ONE (14:45)
[2022-02-26 15:00] VITALS: BP 114/63
[2022-02-26 15:18] VITALS: BP 100/58
[2022-02-26 16:00] VITALS: BP 118/72
[2022-02-26 16:30] VITALS: BP 100/60
[2022-02-26 16:40] VITALS: BP 100/60
== END 2022-02-26 16:40 | disposition home or self-care (01) ==
LOC: M INFU 13:50
PROVIDERS: ATTEND Internal Medicine Medical Oncology
DX: D57.1 Sickle-cell disease without crisis (principal); Z79.899 Other long term (current) drug therapy
CPT/HCPCS: 36430; P9016

== ENCOUNTER 2022-03-08 15:17 | Inpatient (IN) | payer MEDICARE, OTHER ==
[~2022-03-08] VITALS: Ht 177.8 cm; Wt 60.2 kg
[2022-03-08] MEDS ORDERED: NS 1,000 ML IV ONE (16:40)
[2022-03-08] MEDS ORDERED: MORPHINE 4 MG/ML 1ML VIAL/SYRINGE IV ONE ×2 (16:40→20:20)
[2022-03-08 18:55] LABS: MEAN CORPUSCULAR HEMOGLOBIN 31.5 pg (27.0-33.0); MEAN CORPUSCULAR HGB CONC 34.5 g/dl (32.0-36.5); MEAN CORPUSCULAR VOLUME 91.4 fl (80.0-96.0); PLATELET COUNT, AUTOMATED 187 10^3/uL (150-450); RED BLOOD COUNT 2.22 10^6/uL (4.30-6.10); WHITE BLOOD COUNT 20.3 10^3/uL (4.0-10.0)
[2022-03-08 19:00] LABS: HEMATOCRIT 20.3 % (42.0-52.0)
[2022-03-08 19:10] LABS: INR 1.22; PROTHROMBIN TIME 15.8 SECONDS (12.7-14.5)
[2022-03-08 19:11] LABS: PARTIAL THROMBOPLASTIN TIME 41.2 SECONDS (25.9-37.0)
[2022-03-08 19:16] LABS: ERYTHROCYTE SEDIMENTATION RATE 73 mm/hr (0-15)
[2022-03-08 19:26] LABS: ALBUMIN 3.5 GM/DL (3.2-5.2); ALT/SGPT 167 U/L (12-78); BILIRUBIN,TOTAL 6.9 MG/DL (0.2-1.0); BLOOD UREA NITROGEN 24 MG/DL (7-18); C REACTIVE PROTEIN QUANTITATIV 1.45 MG/DL (0.00-0.30); CALCIUM LEVEL 10.5 MG/DL (8.5-10.1); CARBON DIOXIDE LEVEL 26 MEQ/L (21-32); CHLORIDE LEVEL 109 MEQ/L (98-107); CREATININE FOR GFR 1.28 MG/DL (0.70-1.30); GLOMERULAR FILTRATION RATE > 60.0 (>60); GLUCOSE, FASTING 97 MG/DL (70-100); LIPASE 177 U/L (73-393); SODIUM LEVEL 139 MEQ/L (136-145); TOTAL PROTEIN 8.3 GM/DL (6.4-8.2)
[2022-03-08] MEDS ORDERED: ISOVUE-370 76% 100ML VIAL As Ordered ONE (19:40)
[2022-03-08 19:41] LABS: BASOPHILS 4 % (0-1); EOSINOPHILS 5 % (0-3); LYMPHOCYTES 43 % (16-44); MONOCYTES 6 % (0-5); NEUTROPHILS 42 % (28-66)
[2022-03-08 19:43] LABS: ANISOCYTOSIS 2+; POLYCHROMASIA 1+; SICKLE CELLS 2+
[2022-03-08 19:44] LABS: PLATELET ESTIMATE NORMAL (NORMAL)
[2022-03-08] MEDS ORDERED: HumuLIN R (REGULAR) INSULIN (NovoLIN R) **100U/ML** PER UNIT IV ONE (20:00)
[2022-03-08] MEDS ORDERED: DEXTROSE 50% 50 ML SYRINGE IV ONE (20:00)
[2022-03-08 20:29] LABS: RSV AMPLIFICATION NEGATIVE (NEGATIVE)
[2022-03-08] MEDS ORDERED: HOME MED LIST COMPLETE! XX SCH (22:15)
[2022-03-08] MEDS ORDERED: MOM 30ML SUSPENSION UDC PO PRN (22:25)
[2022-03-08] MEDS ORDERED: ACETAMINOPHEN TAB 650MG DOSE (2X325MG) PO PRN (22:25)
[2022-03-08] MEDS ORDERED: FOLIC ACID 1 MG TAB PO ONE (23:00)
[2022-03-09] VITALS (11 sets, daily range): BP systolic 109–128; BP diastolic 59–84
[2022-03-09] MEDS ORDERED: HYDROXYUREA 500 MG CAP PO ONE
[2022-03-09] MEDS: MORPHINE 4 MG/ML 1ML VIAL/SYRINGE IV PRN ×6 (00:52→19:27)
[2022-03-09] MEDS: HEPARIN SOD (PORCINE) 5000UNITS/ML 1ML VIAL/SYRINGE SC SCH ×3 (06:37→21:40)
[2022-03-09 09:22] LABS: HEMATOCRIT 26.2 % (42.0-52.0); MEAN CORPUSCULAR HEMOGLOBIN 30.8 pg (27.0-33.0); MEAN CORPUSCULAR HGB CONC 34.4 g/dl (32.0-36.5); MEAN CORPUSCULAR VOLUME 89.7 fl (80.0-96.0); PLATELET COUNT, AUTOMATED 180 10^3/uL (150-450); RED BLOOD COUNT 2.92 10^6/uL (4.30-6.10); WHITE BLOOD COUNT 18.4 10^3/uL (4.0-10.0)
[2022-03-09 09:43] LABS: ALBUMIN 3.4 GM/DL (3.2-5.2); ALT/SGPT 157 U/L (12-78); BILIRUBIN,TOTAL 7.3 MG/DL (0.2-1.0); BLOOD UREA NITROGEN 20 MG/DL (7-18); CALCIUM LEVEL 10.9 MG/DL (8.5-10.1); CARBON DIOXIDE LEVEL 24 MEQ/L (21-32); CHLORIDE LEVEL 113 MEQ/L (98-107); CREATININE FOR GFR 1.07 MG/DL (0.70-1.30); GLOMERULAR FILTRATION RATE > 60.0 (>60); GLUCOSE, FASTING 117 MG/DL (70-100); POTASSIUM SERUM 5.3 MEQ/L (3.5-5.1); SODIUM LEVEL 143 MEQ/L (136-145); TOTAL PROTEIN 7.9 GM/DL (6.4-8.2)
[2022-03-09] MEDS: HYDROXYUREA 500 MG CAP PO SCH (10:06)
[2022-03-09] MEDS: FOLIC ACID 1 MG TAB PO SCH (10:06)
[2022-03-09] MEDS: NS 1,000 ML IV SCH ×2 (10:07→21:40)
[2022-03-09] MEDS ORDERED: oxyCODONE 5MG TAB PO PRN (10:50)
[2022-03-09 20:12] LABS: HEMOGLOBIN 8.7 g/dl (13.5-17.5); MEAN CORPUSCULAR HEMOGLOBIN 30.7 pg (27.0-33.0); MEAN CORPUSCULAR HGB CONC 34.8 g/dl (32.0-36.5); MEAN CORPUSCULAR VOLUME 88.3 fl (80.0-96.0); PLATELET COUNT, AUTOMATED 165 10^3/uL (150-450); RED BLOOD COUNT 2.83 10^6/uL (4.30-6.10); WHITE BLOOD COUNT 18.8 10^3/uL (4.0-10.0)
[2022-03-09 20:39] LABS: BLOOD UREA NITROGEN 19 MG/DL (7-18); CALCIUM LEVEL 10.4 MG/DL (8.5-10.1); CARBON DIOXIDE LEVEL 27 MEQ/L (21-32); CHLORIDE LEVEL 112 MEQ/L (98-107); CREATININE FOR GFR 1.06 MG/DL (0.70-1.30); GLOMERULAR FILTRATION RATE > 60.0 (>60); GLUCOSE, FASTING 105 MG/DL (70-100); POTASSIUM SERUM 5.2 MEQ/L (3.5-5.1); SODIUM LEVEL 141 MEQ/L (136-145)
[2022-03-09] MEDS ORDERED: MAALOX 30 ML SUSP *UDC PO PRN (22:40)
[2022-03-10 05:05] VITALS: BP 102/75
[2022-03-10] MEDS: HEPARIN SOD (PORCINE) 5000UNITS/ML 1ML VIAL/SYRINGE SC SCH (05:16)
[2022-03-10] MEDS: MORPHINE 4 MG/ML 1ML VIAL/SYRINGE IV PRN (05:16)
[2022-03-10 06:20] LABS: HEMATOCRIT 24.3 % (42.0-52.0); HEMOGLOBIN 8.4 g/dl (13.5-17.5); MEAN CORPUSCULAR HEMOGLOBIN 30.8 pg (27.0-33.0); MEAN CORPUSCULAR HGB CONC 34.6 g/dl (32.0-36.5); PLATELET COUNT, AUTOMATED 165 10^3/uL (150-450); RED BLOOD COUNT 2.73 10^6/uL (4.30-6.10); WHITE BLOOD COUNT 15.9 10^3/uL (4.0-10.0)
[2022-03-10 06:48] LABS: BLOOD UREA NITROGEN 18 MG/DL (7-18); CALCIUM LEVEL 10.2 MG/DL (8.5-10.1); CARBON DIOXIDE LEVEL 25 MEQ/L (21-32); CHLORIDE LEVEL 112 MEQ/L (98-107); CREATININE FOR GFR 0.93 MG/DL (0.70-1.30); GLOMERULAR FILTRATION RATE > 60.0 (>60); GLUCOSE, FASTING 91 MG/DL (70-100); POTASSIUM SERUM 5.1 MEQ/L (3.5-5.1); SODIUM LEVEL 140 MEQ/L (136-145)
[2022-03-10] MEDS: FOLIC ACID 1 MG TAB PO SCH (08:24)
[2022-03-10] MEDS: HYDROXYUREA 500 MG CAP PO SCH (08:25)
[2022-03-10] MEDS ORDERED: INFLUENZA QUADRIVALENT PF VACCINE 0.5ML SYRINGE IM.IMMUN ONE (09:00)
== END 2022-03-10 12:35 | disposition home or self-care (01) | DRG 812 ==
LOC: M ED 15:17 → M ED INP 22:25 → ENRESERV 03-09 08:33 → M MS5PR 03-09 12:00
PROVIDERS: ADMIT Family Medicine; ATTEND Internal Medicine
PROC: 30233N1 Transfusion of Nonautologous Red Blood Cells into Peripheral Vein, Percutaneous Approach (ICD-10-PCS; principal; 2022-03-08)
DX: D57.00 Hb-SS disease with crisis, unspecified (principal); R17 Unspecified jaundice; E87.5 Hyperkalemia; Z90.49 Acquired absence of other specified parts of digestive tract; Z90.81 Acquired absence of spleen; Z79.899 Other long term (current) drug therapy

== ENCOUNTER 2022-04-23 15:15 | Inpatient (IN) | payer MEDICARE, OTHER ==
[~2022-04-23] VITALS: Ht 175.3 cm; Wt 61.9 kg
[~2022-04-23 15:15] MED LIST changes: +CEPH500C PO
[2022-04-23 17:38] LABS: BLOOD UREA NITROGEN 15 MG/DL (7-18); CALCIUM LEVEL 10.2 MG/DL (8.5-10.1); CARBON DIOXIDE LEVEL 27 MEQ/L (21-32); CHLORIDE LEVEL 112 MEQ/L (98-107); CREATININE FOR GFR 1.19 MG/DL (0.70-1.30); GLOMERULAR FILTRATION RATE > 60.0 (>60); GLUCOSE, FASTING 97 MG/DL (70-100); POTASSIUM SERUM 5.5 MEQ/L (3.5-5.1); SODIUM LEVEL 143 MEQ/L (136-145)
[2022-04-23 17:59] LABS: ALBUMIN 3.7 GM/DL (3.2-5.2); BILIRUBIN,TOTAL 5.5 MG/DL (0.2-1.0); TOTAL PROTEIN 8.3 GM/DL (6.4-8.2)
[2022-04-23 18:05] LABS: ERYTHROCYTE SEDIMENTATION RATE 63 mm/hr (0-15)
[2022-04-23] MEDS ORDERED: NS 2,000 ML IV ONE (18:05)
[2022-04-23] MEDS ORDERED: ALBUTEROL SULFATE 2.5 MG/0.5 ML INH NEB SOLN INH PRN (18:20)
[2022-04-23] MEDS ORDERED: ALBUTEROL 90 MCG/ACT 8GM HFA INHALER INH PRN (18:20)
[2022-04-23] MEDS ORDERED: EPINEPHrine INJ 1 MG/ML 1ML AMP IM PRN (18:20)
[2022-04-23] MEDS ORDERED: methylPREDNISolone 125MG 2ML VIAL IV PRN (18:20)
[2022-04-23] MEDS ORDERED: MORPHINE 10 MG/ML 1ML VIAL IV ONE (18:20)
[2022-04-23] MEDS ORDERED: diphenhydrAMINE 50MG/ML VIAL (J1200) IV PRN (18:20)
[2022-04-23] MEDS ORDERED: HYDROXYUREA 500 MG CAP PO ONE (18:30)
[2022-04-23] MEDS ORDERED: FOLIC ACID 1 MG TAB PO ONE (18:30)
[2022-04-23] MEDS ORDERED: BACITAB PO (18:32)
[2022-04-23] MEDS ORDERED: FOLI1TAB11 PO (18:32)
[2022-04-23] MEDS ORDERED: OXYC7.5T3 PO (18:32)
[2022-04-23] MEDS ORDERED: HYDR500C3 PO (18:32)
[2022-04-23] MEDS ORDERED: HOME MED LIST COMPLETE! XX SCH (18:35)
[2022-04-23] MEDS: MORPHINE 4 MG/ML 1ML VIAL/SYRINGE IV PRN ×2 (19:03→21:22)
[2022-04-23] MEDS: NS 1,000 ML IV SCH (19:04)
[2022-04-23] MEDS: PERCOCET 5MG/325MG TAB PO PRN ×2 (19:04→23:23)
[2022-04-23 19:29] VITALS: BP 119/69
[2022-04-23 19:50] VITALS: BP 130/80
[2022-04-23 20:01] LABS: INR 1.24
[2022-04-23 20:02] LABS: PARTIAL THROMBOPLASTIN TIME 37.8 SECONDS (25.9-37.0)
[2022-04-23 20:13] LABS: BASO # 0.1 10^3/uL (0.0-0.2); BASO % 0.7 % (0.0-1.0); EOS # 0.8 10^3/uL (0.0-0.5); EOS % 4.2 % (0.0-3.0); LYMPH # 9.6 10^3/uL (1.5-5.0); LYMPH % 49.6 % (24.0-44.0); MEAN CORPUSCULAR HEMOGLOBIN 33.2 pg (27.0-33.0); MEAN CORPUSCULAR VOLUME 97.6 fl (80.0-96.0); MONO % 10.8 % (2.0-8.0); NEUTROPHILS # 6.5 10^3/uL (1.5-8.5); NEUTROPHILS % 33.4 % (36.0-66.0); PLATELET COUNT, AUTOMATED 163 10^3/uL (150-450); RED BLOOD COUNT 2.05 10^6/uL (4.30-6.10); WHITE BLOOD COUNT 19.5 10^3/uL (4.0-10.0)
[2022-04-23 20:50] LABS: HEMOGLOBIN 6.8 g/dl (13.5-17.5); MONO # 2.1 10^3/uL (0.0-0.8)
[2022-04-23 20:55] LABS: ALBUMIN 3.4 GM/DL (3.2-5.2); BILIRUBIN,DIRECT 1.9 MG/DL (0.0-0.2); BILIRUBIN,TOTAL 5.5 MG/DL (0.2-1.0); C REACTIVE PROTEIN QUANTITATIV 0.48 MG/DL (0.00-0.30); TOTAL PROTEIN 7.2 GM/DL (6.4-8.2)
[2022-04-23 23:00] VITALS: BP 91/70
[2022-04-24] VITALS (12 sets, daily range): BP systolic 104–128; BP diastolic 66–90
[2022-04-24] MEDS: NS 1,000 ML IV SCH ×2 (01:19→09:05)
[2022-04-24] MEDS: PERCOCET 5MG/325MG TAB PO PRN ×2 (04:42→08:50)
[2022-04-24] MEDS ORDERED: MORPHINE 4 MG/ML 1ML VIAL/SYRINGE IV PRN (05:00)
[2022-04-24 07:02] LABS: HEMATOCRIT 28.2 % (42.0-52.0); MEAN CORPUSCULAR HEMOGLOBIN 31.6 pg (27.0-33.0); MEAN CORPUSCULAR VOLUME 92.8 fl (80.0-96.0); PLATELET COUNT, AUTOMATED 145 10^3/uL (150-450); RED BLOOD COUNT 3.04 10^6/uL (4.30-6.10); WHITE BLOOD COUNT 18.5 10^3/uL (4.0-10.0)
[2022-04-24 07:08] LABS: HEMOGLOBIN 9.6 g/dl (13.5-17.5)
[2022-04-24 07:47] LABS: BLOOD UREA NITROGEN 13 MG/DL (7-18); CALCIUM LEVEL 9.7 MG/DL (8.5-10.1); CARBON DIOXIDE LEVEL 27 MEQ/L (21-32); CHLORIDE LEVEL 111 MEQ/L (98-107); CREATININE FOR GFR 1.09 MG/DL (0.70-1.30); GLOMERULAR FILTRATION RATE > 60.0 (>60); GLUCOSE, FASTING 93 MG/DL (70-100); POTASSIUM SERUM 5.1 MEQ/L (3.5-5.1); SODIUM LEVEL 141 MEQ/L (136-145)
[2022-04-24] MEDS ORDERED: methylPREDNISolone 125MG 2ML VIAL IV ONE (08:30)
[2022-04-24] MEDS ORDERED: diphenhydrAMINE 50MG/ML VIAL (J1200) IV ONE (08:30)
[2022-04-24] MEDS ORDERED: NS 1,000 ML IV SCH (08:30)
[2022-04-24] MEDS ORDERED: HEPARIN SOD (PORCINE) 5000UNITS/ML 1ML VIAL/SYRINGE SQ SCH (09:00)
[2022-04-24] MEDS ORDERED: HYDROXYUREA 500 MG CAP PO SCH (09:00)
[2022-04-24] MEDS ORDERED: BEBTELOVIMAB 175MG 2ML VIAL (EUA) IV ONE (09:00)
[2022-04-24] MEDS ORDERED: FOLIC ACID 1 MG TAB PO SCH (09:00)
[2022-04-24] MEDS ORDERED: NIRM1TAB PO (09:09)
[2022-04-24 10:41] LABS: INR 1.29; PROTHROMBIN TIME 16.5 SECONDS (12.7-14.5)
[2022-04-24 10:42] LABS: PARTIAL THROMBOPLASTIN TIME 40.2 SECONDS (25.9-37.0)
[2022-04-24 10:44] LABS: D-DIMER QUANT 573.2 ng/ml (<500)
[2022-04-24] MEDS ORDERED: PERC7.5T11 PO ×2 (12:36→14:19)
[2022-04-24 12:55] LABS: ALBUMIN 3.3 GM/DL (3.2-5.2); BILIRUBIN,DIRECT 2.3 MG/DL (0.0-0.2); BILIRUBIN,TOTAL 6.8 MG/DL (0.2-1.0); C REACTIVE PROTEIN QUANTITATIV 0.47 MG/DL (0.00-0.30); TOTAL PROTEIN 7.1 GM/DL (6.4-8.2)
== END 2022-04-24 12:12 | disposition home or self-care (01) | DRG 811 ==
LOC: M ED 15:15 → M ED INP 18:04 → ENRESERV 21:28 → M 4MAIN 22:35
PROVIDERS: ADMIT General Practice; ATTEND General Practice
PROC: XW033G6 Introduction of REGN-COV2 Monoclonal Antibody into Peripheral Vein, Percutaneous Approach, New Technology Group 6 (ICD-10-PCS; principal; 2022-04-23)
PROC: 30233N1 Transfusion of Nonautologous Red Blood Cells into Peripheral Vein, Percutaneous Approach (ICD-10-PCS; 2022-04-23)
DX: D57.00 Hb-SS disease with crisis, unspecified (principal); U07.1 COVID-19; Z90.49 Acquired absence of other specified parts of digestive tract; Z87.891 Personal history of nicotine dependence

== ENCOUNTER 2022-06-20 13:12 | Observation (INO) | payer MEDICARE, OTHER ==
[~2022-06-20] VITALS: Ht 175.3 cm; Wt 61.4 kg
[2022-06-20] VITALS (8 sets, daily range): BP systolic 103–131; BP diastolic 67–82; O2SAT 93–99
[~2022-06-20 13:12] MED LIST changes: +DICL20GE TP; +NIRM1TAB PO; +OXYC7.5T3 PO
[2022-06-20] MEDS ORDERED: NS 1,000 ML IV ONE (14:25)
[2022-06-20] MEDS ORDERED: KETOROLAC 30 MG/ML 1ML VIAL IV ONE (14:25)
[2022-06-20] MEDS ORDERED: MORPHINE 4 MG/ML 1ML VIAL/SYRINGE IV PRN (14:25)
[2022-06-20 14:46] LABS: MEAN CORPUSCULAR HEMOGLOBIN 32.2 pg (27.0-33.0); MEAN CORPUSCULAR HGB CONC 34.9 g/dl (32.0-36.5); MEAN CORPUSCULAR VOLUME 92.2 fl (80.0-96.0); PLATELET COUNT, AUTOMATED 139 10^3/uL (150-450); RED BLOOD COUNT 2.05 10^6/uL (4.30-6.10); WHITE BLOOD COUNT 15.7 10^3/uL (4.0-10.0)
[2022-06-20 14:49] LABS: HEMATOCRIT 18.9 % (42.0-52.0); HEMOGLOBIN 6.6 g/dl (13.5-17.5)
[2022-06-20 14:55] LABS: INR 1.27; PROTHROMBIN TIME 16.3 SECONDS (12.7-14.5)
[2022-06-20 14:56] LABS: PARTIAL THROMBOPLASTIN TIME 37.9 SECONDS (25.9-37.0)
[2022-06-20 15:10] LABS: RSV AMPLIFICATION NEGATIVE (NEGATIVE)
[2022-06-20 15:13] LABS: D-DIMER QUANT 1117.32 ng/ml (<500)
[2022-06-20 15:15] LABS: ATYPICAL LYMPH 2 % (0-5); BASOPHILS 1 % (0-1); EOSINOPHILS 8 % (0-3); LYMPHOCYTES 41 % (16-44); MONOCYTES 1 % (0-5); NEUTROPHILS 45 % (28-66)
[2022-06-20 15:16] LABS: ANISOCYTOSIS 3+
[2022-06-20 15:17] LABS: HYPOCHROMASIA 1+; SICKLE CELLS 3+
[2022-06-20 15:19] LABS: GIANT PLATELETS 1+
[2022-06-20 15:20] LABS: POLYCHROMASIA 1+
[2022-06-20 15:24] LABS: PLATELET ESTIMATE DECREASED (NORMAL); SCHISTOCYTES 1+
[2022-06-20 15:28] LABS: ERYTHROCYTE SEDIMENTATION RATE 16 mm/hr (0-15)
[2022-06-20 15:33] LABS: ALBUMIN 3.5 GM/DL (3.2-5.2); ALT/SGPT 122 U/L (12-78); BILIRUBIN,DIRECT 2.4 MG/DL (0.0-0.2); BILIRUBIN,TOTAL 8.9 MG/DL (0.2-1.0); BLOOD UREA NITROGEN 15 MG/DL (7-18); C REACTIVE PROTEIN QUANTITATIV 1.05 MG/DL (0.00-0.30); CALCIUM LEVEL 10.3 MG/DL (8.5-10.1); CARBON DIOXIDE LEVEL 24 MEQ/L (21-32); CHLORIDE LEVEL 108 MEQ/L (98-107); CREATININE FOR GFR 1.17 MG/DL (0.70-1.30); FERRITIN 9232 NG/ML (26-388); GLOMERULAR FILTRATION RATE > 60.0 (>60); GLUCOSE, FASTING 122 MG/DL (70-100); LIPASE 187 U/L (73-393); POTASSIUM SERUM 4.7 MEQ/L (3.5-5.1); SODIUM LEVEL 137 MEQ/L (136-145); TOTAL PROTEIN 7.7 GM/DL (6.4-8.2)
[2022-06-20] MEDS ORDERED: DICL1GEL3 TOP (15:36)
[2022-06-20] MEDS ORDERED: NS 500 ML IV ONE (16:05)
[2022-06-20] MEDS ORDERED: LR 1,000 ML IV ONE (17:00)
[2022-06-20] MEDS: HYDROMORPHONE HCL 0.5 MG/ 0.5 ML SYRINGE (J1170 PER 1) IV PRN (19:56)
[2022-06-20] MEDS ORDERED: ENOXAPARIN 40MG/0.4ML SYRINGE (J1650 PER 10MG) SC SCH (21:00)
[2022-06-21] VITALS (11 sets, daily range): BP systolic 108–122; BP diastolic 70–78; O2SAT 93–96
[2022-06-21] MEDS ORDERED: oxyCODONE 5MG TAB PO ONE (00:30)
[2022-06-21] MEDS: LR 1,000 ML IV SCH ×2 (00:47→09:36)
[2022-06-21] MEDS: HYDROMORPHONE HCL 0.5 MG/ 0.5 ML SYRINGE (J1170 PER 1) IV PRN ×3 (00:48→10:06)
[2022-06-21 06:06] LABS: ALT/SGPT 101 U/L (12-78); BILIRUBIN,TOTAL 7.8 MG/DL (0.2-1.0); BLOOD UREA NITROGEN 11 MG/DL (7-18); CALCIUM LEVEL 9.5 MG/DL (8.5-10.1); CARBON DIOXIDE LEVEL 27 MEQ/L (21-32); CHLORIDE LEVEL 109 MEQ/L (98-107); CREATININE FOR GFR 0.89 MG/DL (0.70-1.30); GLOMERULAR FILTRATION RATE > 60.0 (>60); GLUCOSE, FASTING 92 MG/DL (70-100); POTASSIUM SERUM 4.7 MEQ/L (3.5-5.1); SODIUM LEVEL 140 MEQ/L (136-145); TOTAL PROTEIN 6.4 GM/DL (6.4-8.2)
[2022-06-21 07:31] LABS: HEMATOCRIT 21.1 % (42.0-52.0); HEMOGLOBIN 7.2 g/dl (13.5-17.5); MEAN CORPUSCULAR HEMOGLOBIN 31.7 pg (27.0-33.0); MEAN CORPUSCULAR HGB CONC 34.1 g/dl (32.0-36.5); PLATELET COUNT, AUTOMATED 117 10^3/uL (150-450); RED BLOOD COUNT 2.27 10^6/uL (4.30-6.10); WHITE BLOOD COUNT 15.6 10^3/uL (4.0-10.0)
[2022-06-21 08:24] LABS: IRON (FE) 186 UG/DL (65-175); PERCENT SATURATION 96.4 % (19.7-50.0); TOTAL IRON BINDING CAPACITY 193 UG/DL (250-450)
[2022-06-21] MEDS ORDERED: FOLIC ACID 1MG TAB PO SCH (09:00)
[2022-06-21] MEDS ORDERED: HYDROXYUREA 500 MG CAP PO SCH (09:00)
== END 2022-06-21 16:04 | disposition home or self-care (01) ==
LOC: M ED 13:12 → M ED INP 13:13 → M PCU 20:04
PROVIDERS: ADMIT Internal Medicine; ATTEND Internal Medicine
DX: D57.00 Hb-SS disease with crisis, unspecified (principal); R00.1 Bradycardia, unspecified; R74.01 Elevation of levels of liver transaminase levels; D59.9 Acquired hemolytic anemia, unspecified; D72.829 Elevated white blood cell count, unspecified; M79.641 Pain in right hand; M79.642 Pain in left hand; M25.50 Pain in unspecified joint; Z79.899 Other long term (current) drug therapy; Z86.16 Personal history of COVID-19
CPT/HCPCS: 36415; 36430; 71046; 80047; 80048; 80053; 80076; 82728; 83550; 83690; 85025; 85027; 85046; 85379; 85610; 85652; 85730; 86140; 86850; 86870; 86900; 86901; 86920; 87631; 93005; 93041; 96361; 96374; 96375; 96376; 99285; G0378; J1170; J1885; J2270; P9016

== ENCOUNTER 2022-07-29 13:50 | Outpatient (CLI) | payer MEDICARE ==
[~2022-07-29] VITALS: Ht 175.3 cm; Wt 60.6 kg
[2022-07-29 13:50] VITALS: BP 112/66
[~2022-07-29 13:50] MED LIST changes: +ACETAMINOPHEN TAB 650MG DOSE (2X325MG) PO ONE; +DICL1GEL3 TOP; +diphenhydrAMINE 25MG CAP PO ONE
[2022-07-29 16:15] VITALS: BP 135/65
== END 2022-07-29 16:50 | disposition home or self-care (01) ==
LOC: M INFU 13:50
PROVIDERS: ATTEND Internal Medicine Medical Oncology
DX: D57.1 Sickle-cell disease without crisis (principal); D64.9 Anemia, unspecified
CPT/HCPCS: 36430; P9016